=== PATIENT | female | born 1955 ===

== ENCOUNTER 2017-05-10 05:57 | Day surgery (SDC) | payer OTHER ==
[2017-05-04 12:17] VITALS: BMI 48.4
[2017-05-10] MEDS ORDERED: Lactated Ringer's 1,000 ML IV ONE ×2 (07:45→08:45)
[2017-05-10] MEDS ORDERED: Lactated Ringer's 1,000 ML IV SCH (09:17)
[2017-05-10] MEDS ORDERED: Oxycodone/Acetaminophen 5/325 mg Tab PO PRN (09:29)
[2017-05-10] MEDS: HYDROmorphone 0.5 mg/0.5 ml ISec IVP PRN ×2 (09:30→09:45)
--- NOTE | 2017-05-10 10:49 | PCM.SURG1 ---
Surgeon's Initial Post Op Note - Surgeon's Notes Surgeon: Azucena Soto Oak Tanner: Azucena Hickman Type of Anesthesia: General Endo Anesthesia Administered By: Lan Pre-Operative Diagnosis: cholelithiasis Operative Findings: gallbladder with stone Post-Operative Diagnosis: cholelithiasis Operation Performed: laparoscopic cholecystectomy Specimen/Specimens Removed: gallbladder Estimated Blood Loss: EBL {In ML}: 20 Blood Products Given: N/A Drains Used: No Drains Post-Op Condition: Good Date of Surgery/Procedure: 05/10/17 Time of Surgery/Procedure: 10:49
[2017-05-10 11:43] VITALS: RESP 18; TEMP 97.9
[2017-05-10 13:14] VITALS: BP 113/50; PULSE 78; O2SAT 94
--- NOTE | 2017-05-10 15:15 | OP ---
PROCEDURE DATE: 05/10/2017 SURGEON: Dr. Soto EEG TECHNICIAN: Dr. Hickman ANESTHESIA: General, Dr. Montenegro. PREOPERATIVE DIAGNOSIS: Cholelithiasis. POSTOPERATIVE DIAGNOSIS: Cholelithiasis. PROCEDURE: Laparoscopic cholecystectomy. DESCRIPTION OF OPERATION: With the patient in the supine position under adequate general anesthesia, the abdomen was prepped and draped in the usual sterile manner. Veress needle puncture was performe d at the umbilicus with insufflation to 15 cm water pressure of CO2 and a 10 mm laparoscopic trocar w as inserted via an infraumbilical incision. Under direct vision, additional trocars were inserted in the epigastrium and right costal margin. The gallbladder was visualized. The fundus was grasped an d elevated. Omental adhesions were cleared from the surface of the gallbladder to expose the infundi bular area, which was grasped and retracted laterally. The cystic duct was identified and dissected. The cystic duct was cleared down toward the junction with the common bile duct and viewed anteriorl y and posteriorly for a view of safety. The cystic duct was then triply clipped and divided. The cy stic artery was similarly identified and triply clipped and divided and the gallbladder was dissected free of the liver bed using electrocautery. The liver bed was inspected for hemostasis and the diss ection was completed. The gallbladder was placed in a specimen retrieval bag and removed via the umb ilical port site. Right upper quadrant was irrigated and suctioned. Pneumoperitoneum was released a nd the trocars removed. The umbilical port site was closed with a fascial suture of 0 Vicryl. All i ncisions were closed with 4-0 Monocryl subcuticular sutures and Steri-Strips. Dry sterile dressings were applied. The patient tolerated the procedure well and transferred to recovery room in stable co ndition. Estimated blood loss for the procedure was 20 mL. Cristhian Soto MD cc: 58 TT: 05/10/2017 15:14:06 en
== END 2017-05-10 15:30 | disposition home or self-care (01) ==
LOC: H.OPSURG 05:57
PROVIDERS: ATTEND Specialist
DX: K80.20 Calculus of gallbladder without cholecystitis without obstruction (principal); J45.909 Unspecified asthma, uncomplicated; I10 Essential (primary) hypertension; E66.01 Morbid (severe) obesity due to excess calories

== ENCOUNTER 2017-07-06 09:32 | Day surgery (SDC) | payer OTHER ==
[2017-07-06 10:01] VITALS: BMI 42.8
--- NOTE | 2017-07-06 11:11 | CP.PCM.PN ---
Subjective - Date & Time of Evaluation Date of Evaluation: 07/06/17 Time of Evaluation: 11:00 - Subjective Subjective: 62 year old female with PMH of HTN, high cholesterol, asthma seen in [facility] for preoperative evaluation for right ankle arthroscopy with debridement of synovium. She states that she has had this procedure in the past that has helped tremendously but the pain eventually came back. She reports twisting her ankle a lot in the past. She has had this ankle pain for 8+ years. Rates the pain 10/10 and describe the pain as being located at the anterior ankle. Pain with any movements weightbearing or nonweightbearing. She has exhausted all conservative treatment and opt for right ankle surgery. She has no eaten or drank anything since 6pm yesterday. PMH: HTN, high cholesterol, asthma PSH: b/l hammertoe surgery, b/l ankle surgery, L bunion surgery, b/l total knee replacement, cyst removal, hysterectomy, tube ligation Allergies: NKDA SH: smokes 3 cigarettes/week since 15 y.o, socially drinks, denies elicited drug use FH: asthma Meds: see med list Objective - Vital Signs/Intake and Output Vital Signs (last 24 hours): Temp Pulse Resp BP Pulse Ox 98.1 F 73 18 138/76 97 07/06/17 09:55 07/06/17 09:55 07/06/17 09:55 07/06/17 09:55 07/06/17 09:55 - Constitutional Appears: Well, Non-toxic, No Acute Distress - Extremities Exam Additional comments: Vasc: DP and PT 2/4 bilaterally, temperature gradient WNL, RN GERIATRIC <3 seconds, digital hair present bilaterally, no edema noted ORtho: MM is 5/5 bilaterally, severe pain with palpation to the lateral gutter of right ankle, pain with R ankle ROM, moderate pain with palpation of the entire anterior ankle Neuro: gross and protective sensation intact bilaterally Derm: skin is hyrdated, nails x10 wnl, no open lesions noted, webspaces 1-4 b/l are CDI - Neurological Exam Neurological Exam: Alert, Awake, Oriented x3 - Psychiatric Exam Psychiatric exam: Normal Affect, Normal Mood Assessment and Plan - Assessment and Plan (Free Text) Assessment: 62 year old female with PMH of HTN, high cholesterol, asthma seen in [facility] for preoperative evaluation for right ankle arthroscopy with debridement of synovium. Plan: Pt was seen and examined in SDS Pt NPO status was confirmed All Pre-op testing and clearance was in the chart Pt has exhausted all conservative treatment at this time and is opting for surgical intervention Pt was explained procedure and post-operative course All pt's questions were answered to satisfaction No guarantees were made Pt understands all risks, benefits and complications of procedure Pt will follow-up with Dr. Gomez
--- NOTE | 2017-07-06 11:17 | CP.SDSHP ---
Same Day Surgery H & P - History Proposed Procedure: R arthroscopy ankle with debridement Pre-Op Diagnosis: Right Ankle Synovitis - Previous Medical/Surgical History Cardiac: Hypertension Pulmonary: Asthma - Allergies Allergies: Allergies No Known Allergies Allergy (Verified 09/16/16 09:49) - Physical Exam Vital Signs: Vital Signs 07/06/17 07/06/17 09:50 09:55 Temperature 98.1 F Pulse Rate 73 73 Respiratory 18 Rate Blood Pressure 138/76 O2 Sat by Pulse 97 Oximetry - {Optional Preform as Required} Integument: WNL - Impression Impression: Pt was seen and examined in SDS. Pt NPO status was confirmed. All Pre-op testing and clearance was in the chart. Pt has exhausted all conservative treatment at this time and is opting for surgical intervention. Pt was explained procedure and post-operative course. All pt's questions were answered to satisfaction. No guarantees were made. Pt understands all risks, benefits and complications of procedure. Pt will follow-up with Short Stay Discharge - Short Stay Discharge Admitting Diagnosis/Reason for Visit: M19.0/M25.571 Referrals: Slim Marti MD [Primary Care Provider] - Instructions: RICE Therapy (GEN), Oxycodone/Acetaminophen (By mouth), Cephalexin (By mouth) Additional Instructions (Diet, Activity): --Patient in good/stable condition for discharge home. Pt to resume medications per medical reconciliation. Resume regular diet. Please keep dressing clean, dry, & intact to surgical site, use plastic bag over bandage for showering, wear post op shoe at all times when ambulating, call clinic if you see signs of infection (redness, swelling, malodor), please make an appointment to see Dr. Gomez in office/clinic within 1 week for post-op check. Progress Note/Discharge Note with Instructions: - Patient evaluated bedside in recovery s/p surgical procedure. - After surgical procedure patient in NAD - (+) Void, (+) Appetite - Capillary refill time <3s and NVSI intact. - Patient denies complaints at this time - Post operative instructions and plan of care explained to patient at length. - Pt. acknowledges understanding. - Patient stable for DC per podiatric surgery
[2017-07-06] MEDS ORDERED: Lidocaine 1% Inj (20ml) IJ ONE (11:19)
[2017-07-06] MEDS ORDERED: ceFAZolin 2 GM in Sodium Chloride 0.9% 100 ML IVPB ONE (11:19)
[2017-07-06] MEDS ORDERED: Bupivacaine HCl 0.25% PF (30 ml) Inj IJ ONE (11:19)
[2017-07-06] MEDS ORDERED: Propofol 10 mg/ml Inj (20 ML) ONE (12:11)
[2017-07-06] MEDS ORDERED: Midazolam 2 MG/2 ML VIAL ONE (12:11)
[2017-07-06] MEDS ORDERED: Ropivacaine 0.5% 30ML IV ONE (12:14)
[2017-07-06] MEDS ORDERED: Lidocaine 2% w Epi 1:100,000 Inj IJ ONE (12:15)
[2017-07-06] MEDS ORDERED: Bupivacaine 0.5% Inj(30mL) ONE (12:15)
[2017-07-06] MEDS ORDERED: EPINEPHrine 1 mg/ml (1:1000) Inj ONE (12:16)
[2017-07-06] MEDS ORDERED: Lactated Ringer's 1,000 ML IV ONE (12:20)
--- NOTE | 2017-07-06 14:19 | PCM.SURG1 ---
Surgeon's Initial Post Op Note - Surgeon's Notes Surgeon: Dr. Gomez DPM Nuclear Reactor Engineer: Dr. Gallegos DPM, PGY-3, Dr. Bender DPM, PGY-2, Dr. Jackman DPM PGY- 3 Type of Anesthesia: General LMA Anesthesia Administered By: Dr. Scott Pre-Operative Diagnosis: right ankle synovitis and scarring Operative Findings: see dictation Post-Operative Diagnosis: same Operation Performed: R ankle arthroscopy and synovectomy Specimen/Specimens Removed: none Estimated Blood Loss: EBL {In ML}: 2 Blood Products Given: N/A Drains Used: No Drains Post-Op Condition: Good Date of Surgery/Procedure: 07/06/17 Time of Surgery/Procedure: 12:00
[2017-07-06] MEDS ORDERED: Oxycodone/Acetaminophen 5/325 mg Tab PO PRN ×2 (14:23)
[2017-07-06] MEDS ORDERED: DiphenhydrAMINE 50 mg/ml Inj IVP PRN (14:23)
[2017-07-06] MEDS ORDERED: Lactated Ringer's 1,000 ML IV SCH (14:23)
[2017-07-06] MEDS ORDERED: HYDROmorphone 0.5 mg/0.5 ml ISec IVP PRN (14:23)
[2017-07-06 15:36] VITALS: TEMP 97.8
[2017-07-06 16:48] VITALS: BP 123/59; PULSE 76; RESP 20; O2SAT 99
--- NOTE | 2017-07-06 17:19 | RAD ---
PROCEDURE: Right Ankle Radiographs. HISTORY: s/p right ankle surgery COMPARISON: 06/13/2017 FINDINGS: BONES: There is no acute fracture or bone destruction. Bone mineralization is normal. There is a large plantar spur. There is degenerative osteoarthrosis in the talonavicular joint. There are ossific densities inferior to the lateral malleolus which may represent old trauma. JOINTS: Normal. No osteoarthritis. Ankle mortise maintained. Talar dome intact SOFT TISSUES: There is diffuse subcutaneous edema. OTHER FINDINGS: None. IMPRESSION: Large plantar calcaneal spur and mild degenerative osteoarthrosis in the talonavicular joint.
--- NOTE | 2017-07-11 11:22 | OP ---
PROCEDURE DATE: 07/06/2017 PREOPERATIVE DIAGNOSES: Right ankle synovitis and impingement. POSTOPERATIVE DIAGNOSES: Right ankle synovitis and impingement. PROCEDURE PERFORMED: Right ankle arthroscopy with synovectomy and debridement of fibrous tissue. SURGEON: Gil Gomez DPM ASSISTANTS: 1. Juvenal Gallegos DPM, PGY-3. 2. Ruel Jackman DPM, PGY-3. 3. Christine Bender DPM, PGY-2. TYPE OF ANESTHESIA: General sedation and popliteal block. INDICATIONS: This patient is a 62-year-old female with the aforementioned diagnosis. The patient has been treated by Dr. Gomez in the [facility], where she has exhausted multiple forms of conservative and surgical treatment options. The patient desires surgical intervention again at this time. All alternatives, benefits, complications, and risks of surgical procedure were explained to the patient at length. The patient verbalized understanding and wished to proceed. All questions were addressed and answered. No guarantees were given or implied. Consent was signed and the n.p.o. status was confirmed prior to bringing the patient to the operating room. DESCRIPTION OF PROCEDURE: The patient was brought into the operating room, placed on operative table in the supine position. A pneumatic thigh tourniquet was applied to the patient's right thigh. After induction of general sedation, the foot and ankle were then prepped and draped in the normal sterile manner and the procedure began. PROCEDURE: Right ankle arthroscopy and synovectomy with debridement of all fibrotic tissue. Attention was directed to the anterior aspect of the patient's right ankle, where the right ankle joint was palpated and marked with a skin marker. The medial portal for the ankle arthroscopy was palpated just medial to the tibialis anterior tendon at the level of the ankle joint line. A 20 mL syringe with 3:1 mixture of 1% lidocaine plain and 1% lidocaine with epinephrine was inserted at this location into the ankle joint and the ankle joint was insufflated with approximately 15 mL. Next, a #15-blade was utilized to make an incision at this location. The incision was made through superficial dermis and epidermis down to the subcutaneous tissues. A hemostat was then utilized to dissect through the subcutaneous and deep layers down to the ankle joint capsule. Next, the obturator and trocar for the 4.0 mm ankle arthroscope was inserted into the medial portal to penetrate the ankle joint capsule and inserted into the ankle joint. The trocar was then removed from the obturator and the 4.0 mm camera was inserted into the obturator. At this time, it is noted that the arthroscope was inside the ankle joint and there was an abundant amount of synovitic and fibrotic tissue within the ankle joint obscuring appropriate visualization. The proximal location of the lateral portal for the ankle arthroscope was terminated with the ankle arthroscope already within the ankle joint. A #15-blade was utilized to make an incision at this level in line with the previously marked ankle joint. Incision was deepened to the superficial epidermis and dermis. Next, the hemostat was utilized to dissect down to the subcutaneous tissues to lateral aspect of the ankle joint. Again, the trocar was utilized to penetrate the lateral aspect of the ankle through the lateral portal. The shaver was then inserted into the lateral portal and an attempt was made to visualize it with the arthroscope. Shaver was triangulated with the arthroscope and visualized. The shaver was then utilized to resect all visible synovitic and fibrotic tissue. There was again noted that there was an abundant amount of fibrotic and synovitic tissue within the ankle joint impinging proper ankle joint motion. A sterile debridement of the ankle joint and the medial and lateral gutters were then performed. It was again noted that there was an excessive amount of fibrotic tissue within the medial and lateral gutters impinging proper ankle joint range of motion. All of the above fibrotic and synovitic tissue was debrided utilizing the shaver. Attention was directed then to the anterior aspect of the tibia, where it is noted that there was multiple prominent soft tissue fibrotic areas. Shaver was then again utilized to debride all prominent fibrotic soft tissues from the anterior aspect of the tibia. Attention was then directed back to the medial gutter, where the shaver was removed from lateral portal and a grabber was inserted into the lateral portal to further debride any synovitic and fibrotic tissue. The same was done with the grabber for the lateral gutter. The grabber was then removed through the lateral portal and the shaver was again inserted into the lateral portal into the ankle joint and triangulated with arthroscope. All remaining portions of synovitic and fibrotic tissues were removed with the shaver and it was noted at this time that the ankle joint was clearly visualized with increased range of motion and improved removal of synovitic and fibrotic tissue. It was also noted that there were multiple fibrotic changes within the cartilage of the talar dome, but no distinct osteochondral lesion. The shaver and arthroscope were then removed from the lateral and medial portals and the skin was reapproximated utilizing 4-0 nylon suture. Intraoperative injections consisted of 10 mL of 0.5% Marcaine plain administered to the medial aspect of the ankle joint to block the saphenous nerve. Postoperative bandages consisted of saline soaked gauze, TFD, Radha, and an Dar bandage. POSTOPERATIVE CONDITION: The patient tolerated the procedure and anesthesia well with no apparent complications or complaints. The patient was escorted from the OR to the recovery room with vital signs stable and neurovascular status intact. The patient will follow up with Dr. Gomez in [facility] on an outpatient basis. Juvenal Gallegos DPM
== END 2017-07-06 17:29 | disposition home or self-care (01) ==
LOC: H.OPSURG 09:32
PROVIDERS: ATTEND Podiatrist
DX: M65.871 Other synovitis and tenosynovitis, right ankle and foot (principal); E78.5 Hyperlipidemia, unspecified; I10 Essential (primary) hypertension; M25.871 Other specified joint disorders, right ankle and foot

== ENCOUNTER 2018-02-01 09:07 | Emergency (ER) | payer OTHER ==
[2018-02-01 09:24] VITALS: BMI 49.4
[2018-02-01 09:26] VITALS: TEMP 98.2
[2018-02-01] MEDS ORDERED: Lidocaine 5% Patch TD STA (10:01)
[2018-02-01] MEDS ORDERED: Lidocaine 5% Patch TD ONE (10:09)
--- NOTE | 2018-02-01 10:46 | ED PDOC ---
HPI: Back Time Seen by Provider: 02/01/18 09:28 Chief Complaint (Nursing): Back Pain Chief Complaint (Provider): Right flank pain History Per: Patient History/Exam Limitations: no limitations Onset/Duration Of Symptoms: Days Current Symptoms Are (Timing): Still Present Quality Of Discomfort: "Pain" Additional History Per: Patient Additional Complaint(s): 62yo female, with history of hypertension, controlled with medication, presents to ED with right flank pain radiating to her right abdomen for the past 4 days. Patient denies any inciting injuries or trauma. States she has been taking Motrin 600mg every 5-6 hours with no relief of pain; patient states her last dose was 1 day ago. She also reports using a muscle relaxer with no relief of symptoms. She states the pain does not radiate to her legs and denies any associated fever, chills, dysuria, hematuria. Patient states she is able to lean to the left but not to the right due to her pain. She has no other medical complaints. PCP: Moris Sosa Past Medical History Reviewed: Historical Data, Nursing Documentation, Vital Signs Vital Signs: Last Vital Signs Temp 98.2 F 02/01/18 09:24 Pulse 58 L 02/01/18 09:24 Resp 20 02/01/18 09:24 BP 104/60 02/01/18 09:24 Pulse Ox 100 02/01/18 09:24 - Medical History PMH: Arthritis, Asthma, HTN, Hypercholesterolemia, Rheumatoid Arthritis Denies: Anemia, Chronic Kidney Disease - Surgical History Surgical History: Cholecystectomy (05/10/17), Endoscopy - Family History Family History: States: Unknown Family Hx - Social History Current smoker - smoking cessation education provided: No Alcohol: None Drugs: Denies - Home Medications Home Medications: Ambulatory Orders Medication Instructions Recorded Enalapril/Hydrochlorothiazide 1 tab PO DAILY 09/16/16 [Enalapril-Hctz 10-25 mg Tablet] Simvastatin [Zocor] 40 mg PO DAILY 09/16/16 Albuterol HFA [Ventolin HFA 90 1 puff IH Q4 PRN #1 inhaler 11/12/16 mcg/actuation (8 g)] Aspirin [Ecotrin] 81 mg PO DAILY 07/06/17 Cephalexin [Keflex] 1 cap PO TID 07/06/17 Ibuprofen [Motrin Tab] 800 mg PO PRN PRN 07/06/17 oxyCODONE/Acetaminophen [Percocet 5 - 325 mg PO .Q4-6 PRN 07/06/17 5/325 mg Tab] Lidocaine 5% [Lidoderm] 1 patch TD DAILY #10 patch 02/01/18 Naproxen [Naprosyn] 500 mg PO BID PRN #20 tablet 02/01/18 diaZEpam [Valium] 5 mg PO QID #12 tab 02/01/18 - Allergies Allergies/Adverse Reactions: Allergies Allergy/AdvReac Type Severity Reaction Status Date / Time No Known Allergies Allergy Verified 02/01/18 09:32 Review of Systems ROS Statement: Except As Marked, All Systems Reviewed And Found Negative Constitutional: Negative for: Fever, Chills Gastrointestinal: Positive for: Abdominal Pain (right sided) Genitourinary Female: Negative for: Dysuria, Hematuria Musculoskeletal: Positive for: Back Pain (right flank pain) Physical Exam - Reviewed Nursing Documentation Reviewed: Yes Vital Signs Reviewed: Yes - Physical Exam Appears: Positive for: Non-toxic, No Acute Distress Head Exam: Positive for: ATRAUMATIC, NORMAL INSPECTION, NORMOCEPHALIC Skin: Positive for: Normal Color Eye Exam: Positive for: Normal appearance Neck: Positive for: Supple Cardiovascular/Chest: Positive for: Regular Rate, Rhythm Respiratory: Positive for: Normal Breath Sounds Back: Positive for: Other (tenderness to palpation of right paralumbar area. Negative straight leg raise.) Extremity: Positive for: Normal ROM, Other (5/5 motor strength distally) Neurologic/Psych: Positive for: Alert, Oriented. Negative for: Motor/Sensory Deficits - ECG O2 Sat by Pulse Oximetry: 100 (RA) Pulse Ox Interpretation: Normal - Progress Re-evaluation Time: 11:33 Condition: Improved Medical Decision Making Medical Decision Making: Impression: Likely muscle spasm Plan: -- Valium 5mg PO -- Toradol 60 mg IM -- Lidoderm patch Scribe Attestation: Documented by Ruchi Thomas acting as a scribe for Marge Mcnamara MD. Provider Attestation: All medical record entries made by the Scribe were at my direction and personally dictated by me. I have reviewed the chart and agree that the record accurately reflects my personal performance of the history, physical exam, medical decision making, and the department course for this patient. I have also personally directed, reviewed, and agree with the discharge instructions and disposition. Disposition - Clinical Impression Clinical Impression: Back strain - Patient ED Disposition Is Patient to be Admitted: No Doctor Will See Patient In The: Office Counseled Patient/Family Regarding: Diagnosis, Need For Followup, Rx Given - Disposition Disposition: Routine/Home Disposition Time: 11:33 Condition: IMPROVED Prescriptions: diaZEpam [Valium] 5 mg PO QID #12 tab Lidocaine 5% [Lidoderm] 1 patch TD DAILY #10 patch Naproxen [Naprosyn] 500 mg PO BID PRN #20 tablet PRN Reason: Pain, Moderate (4-7) Instructions: Muscle Strain Forms: [facility] (Hebrew) - POA Present On Arrival: None
[2018-02-01 11:49] VITALS: BP 126/60; PULSE 66; RESP 18; O2SAT 99
== END 2018-02-01 11:55 | disposition home or self-care (01) ==
LOC: H.ER 09:07
DX: R10.9 Unspecified abdominal pain (principal); S39.012A Strain of muscle, fascia and tendon of lower back, initial encounter; Y92.89 Other specified places as the place of occurrence of the external cause; E78.00 Pure hypercholesterolemia, unspecified; I10 Essential (primary) hypertension; J45.909 Unspecified asthma, uncomplicated; M06.9 Rheumatoid arthritis, unspecified; Z79.82 Long term (current) use of aspirin
CPT/HCPCS: 96372; 99283; J1885

== ENCOUNTER 2018-05-10 09:10 | Day surgery (SDC) | payer OTHER ==
--- NOTE | 2018-05-10 10:41 | CP.PCM.PN ---
Subjective - Date & Time of Evaluation Date of Evaluation: 05/10/18 Time of Evaluation: 10:38 - Subjective Subjective: Preoperative progress note for Dr. Gomez 63F with PMH HTN, HLD seen preoperatively in [facility] for revisional right second metatarsal surgery as well as partial resection of right fifth metatarsal head. Patient is AAO x 3 and NAD at time of visit. States that she has been having increased pain to her right lateral ankle and foot over the last nine days. States that she stopped taking Aspirin 8 days ago. Denies any other anti- coagulation therapy. States that she has been NPO since 7 pm last night. Also denies any adverse reactions to anesthesia during previous surgeries. Denies any other pedal complaints at this time. Denies any recent N/V/F/C/CP/SOB/D Objective - Vital Signs/Intake and Output Vital Signs (last 24 hours): Temp Pulse Resp BP Pulse Ox 97 F L 70 20 137/68 96 05/10/18 09:30 05/10/18 09:30 05/10/18 09:30 05/10/18 09:30 05/10/18 09:30 - Constitutional Appears: Well, Non-toxic, No Acute Distress - Head Exam Head Exam: ATRAUMATIC, NORMOCEPHALIC - Extremities Exam Additional comments: RLE focused exam Vasc: DP/PT pulses 2/4 b/l. SKin temperature warm to warm from proximal to distal WNL. CFT < 3 seconds to all digits b/l. Minimal LE edema noted around lateral ankle and dorsal foot Neuro: Epicritic and protective sensation grossly intact b/l Derm: Well healed cicatrix noted to dorsal foot at level of second MTPJ. Otherwise no open lesions, wounds, maceration, xerosis, abnormal pigmentation or abnormal growths noted MSK: Diffuse minimal POP noted to right foot and lateral ankle. Increased POP noted to second MTPJ and lateral fifth metarsal head. Floating left second digit noted. No other gross deformities noted. Slight calf pain when squeezed on right side - Neurological Exam Neurological Exam: Alert, Awake, Oriented x3 - Psychiatric Exam Psychiatric exam: Normal Affect, Normal Mood Assessment and Plan - Assessment and Plan (Free Text) Assessment: 63F with PMH HTN, HLD seen preoperatively in [facility] for revisional right second metatarsal surgery as well as partial resection of right fifth metatarsal head Plan: Pt was seen and examined in SDS Pt NPO status was confirmed All pre-op testing and clearance in chart Pt has exhausted all conservative treatment at this time and is opting for surgical intervention Pt was explained procedure and post-operative course All pt's questions were answered to satisfaction No guarantees were made Pt understands all risks, benefits and complications of procedure Pt will follow-up with Dr. Gomez within 1 week of surgery
--- NOTE | 2018-05-10 10:48 | CP.SDSHP ---
Same Day Surgery H & P - History Proposed Procedure: Revisional right second metatarsal head osteotomy and right fifth metatarsal head partial resection Pre-Op Diagnosis: Painful floating right second digit and painful right fifth metatarsal head exostosis - Previous Medical/Surgical History Pain: 6.Severe Pain Previous Surgical History: Right second metatarsal head osteotomy - Allergies Allergies: Allergies No Known Allergies Allergy (Verified 05/10/18 09:37) - Physical Exam Vital Signs: Vital Signs 05/10/18 09:30 Temperature 97 F L Pulse Rate 70 Respiratory 20 Rate Blood Pressure 137/68 O2 Sat by Pulse 96 Oximetry Mental Status: Alert & Oriented x3 - {Optional Preform as Required} Integument: WNL Ortho: Other (POP right second met head and fifth met head) - Impression Pt. Evaluated Today:Candidate for Anesthesia & Procedure: Yes - Date & Time Date: 05/10/18 Time: 10:48 Short Stay Discharge - Short Stay Discharge Admitting Diagnosis/Reason for Visit: S93.149D,M77.41 Disposition: HOME/ ROUTINE Referrals: Adriana Perez MD [Primary Care Provider] -
[2018-05-10] MEDS ORDERED: Bupivacaine 0.5% Inj(30mL) IJ ONE (10:49)
[2018-05-10] MEDS ORDERED: Lidocaine 1% Inj (20ml) IJ ONE (10:49)
[2018-05-10] MEDS ORDERED: ceFAZolin 1 GM in Sodium Chloride 0.9% 100 ML IVPB ONE (10:49)
[2018-05-10] MEDS ORDERED: Sodium Chloride 0.9% 1,000 ML IV SCH (11:00)
[2018-05-10] MEDS ORDERED: Lactated Ringer's 1,000 ML IV ONE (12:00)
[2018-05-10] MEDS ORDERED: Midazolam 2 MG/2 ML VIAL ONE (12:02)
[2018-05-10] MEDS ORDERED: Propofol 10 mg/ml Inj (20 ML) ONE (12:02)
[2018-05-10] MEDS ORDERED: Bupivacaine HCl 0.5% PF (10 ml) Inj ONE (12:21)
[2018-05-10] MEDS ORDERED: Dexamethasone 4 mg/1 ml ONE (12:25)
[2018-05-10] MEDS ORDERED: MethylPREDNISolone Depo 40 mg/ml Inj ONE (12:25)
[2018-05-10] MEDS ORDERED: Lidocaine 2% Inj (20ml) ONE (12:25)
[2018-05-10] MEDS ORDERED: Bupivacaine HCl 0.25% PF (30 ml) Inj ONE (12:25)
[2018-05-10] MEDS ORDERED: Lidocaine 4% MPF 5 ML IJ ONE (12:54)
[2018-05-10] MEDS ORDERED: Sevoflurane - Inhalation Anesthetic Liq (250 ml) ONE (13:17)
[2018-05-10] MEDS: Lidocaine 2% Inj (20ml) ONE ×2 (13:21→14:45)
--- NOTE | 2018-05-10 15:02 | PCM.SURG1 ---
Surgeon's Initial Post Op Note - Surgeon's Notes Surgeon: Dr. Gomez DPM Shower Room Attendant: Dr. Jimenez PGY-2 DPM, Dr. Jackman PGY-1 Anesthesia Administered By: Dr. Sosa Pre-Operative Diagnosis: 1. right foot 2nd digit subluxation. 2. right foot 2nd MPJ plantar plate rupture. 3. right foot 5th metatarsalgia secondary to bony prominence and soft tissue Operative Findings: see dictations; materials: 3-0 vicryl, 3-0 monocryl, 4-0 monocryl, fiberwire. injectables: preoperative injectables total: 16 cc of 1:1 of 1% lidocaine plain and .25% marcaine plain, intraoperative injectables: 10cc of 1% lidocaine pain Post-Operative Diagnosis: same Operation Performed: 1. 2nd metatarsal phalangeal joint plantar plate repair with fiberwire right foot. 2. 5th metatarsal partial head resection and soft tissue right foot Specimen/Specimens Removed: 1. soft tissue from lateral aspect of 5th metatarsad head Estimated Blood Loss: EBL {In ML}: 2 Blood Products Given: N/A Drains Used: No Drains Post-Op Condition: Good Date of Surgery/Procedure: 05/10/18 Time of Surgery/Procedure: 12:45
[2018-05-10] MEDS ORDERED: HYDROmorphone 0.5 mg/0.5 ml ISec IVP PRN (15:06)
[2018-05-10] MEDS ORDERED: Lactated Ringer's 1,000 ML IV SCH (15:15)
[2018-05-10] MEDS ORDERED: Oxycodone/Acetaminophen 5/325 mg Tab PO PRN ×2 (15:16)
[2018-05-10 16:24] VITALS: RESP 18
[2018-05-10 17:20] VITALS: PULSE 68
[2018-05-10 18:29] VITALS: BP 121/57; TEMP 98; O2SAT 95
--- NOTE | 2018-05-11 16:38 | RAD ---
PROCEDURE: Right Foot Radiographs. HISTORY: s/p right foot surgery COMPARISON: 04/10/2018 FINDINGS: BONES: No acute fracture. Healed fracture deformity distal 5th metatarsal -secondary 5th metatarsal phalangeal joint arthrosis here. Residual hardware tracts 2nd metatarsal and 2nd proximal phalanx prior hardware here removed at 2nd metatarsal head. Osseous hypertrophic changes with or without concomitant small accessory ossifications centers cuboid 5th metatarsal articulation -unchanged. Inferior plantar spur JOINTS: Minimal 1st metatarsal joint space narrowing -osteoarthrosis SOFT TISSUES: Soft tissue swelling OTHER FINDINGS: None. IMPRESSION: Interval soft tissue swelling. No acute type periosteal reaction Interval removal of hardware 2nd digit Other findings -as above.
--- NOTE | 2018-05-15 08:15 | OP ---
PROCEDURE DATE: 05/10/2018 PATIENT'S AGE: 63. PATIENT'S GENDER: Female. PREOPERATIVE DIAGNOSES: 1. Right second metatarsophalangeal joint subluxation, secondary to recurrent plantar plate rupture. 2. Right foot fifth metatarsal head metatarsalgia. POSTOPERATIVE DIAGNOSES: 1. Right foot second metatarsophalangeal joint plantar plate rupture with second-degree subluxation. 2. Right foot fifth metatarsal extracapsular soft tissue mass. 3. Right foot fifth metatarsal head metatarsalgia. PROCEDURES PERFORMED: 1. Right foot revisional second metatarsophalangeal joint plantar plate repair. 2. Right foot excision of soft tissue mass. 3. Right foot fifth metatarsal head exostectomy. PRIMARY SURGEON: Gil Gomez DPM ASSISTANTS: Mary Jimenez, PGY-2, DPM and Dr. Letitia Jackman, PGY-1 ANESTHESIOLOGIST: Monico Sosa MD ANESTHESIA TYPE: IV sedation with local. SPECIMEN: Right foot soft tissue mass. INDICATIONS: The patient is a 63-year-old female with the above-stated diagnoses. The patient has exhausted all conservative treatment options at this point and is now in need of additional surgical intervention. The patient signed the surgical consent after careful explanation of risks, benefits, complications, and potential alternatives of the above surgical procedures. No guarantees were either given or implied. All the patient's questions were answered to her satisfaction. PREPARATION: The patient's n.p.o. status was confirmed prior to bringing the patient to the operating room. The patient was brought into the operating room and placed on the operating room table in a supine position. A well-padded pneumatic tourniquet was applied in a supramalleolar position to the patient's right ankle and set at 250 mmHg to be inflated once the procedure began. Once IV sedation was confirmed to have been achieved, the patient received an ipsilateral hip pump placed inferior to the operating room table mattress to allow the patient in adequate position. At this time, the patient received a total of 20 mL of 1:1 mixture of 0.5% Marcaine plain to 1% lidocaine plain in a local block type fashion in the forefoot. Once local anesthetic was confirmed to have been achieved, the patient's right foot was then prepped and draped in the usual sterile manner. The tourniquet was inflated after the foot had been exsanguinated, and the procedure began. PROCEDURE 1: Right foot revision of plantar plate repair. Attention was then directed to the dorsal aspect of the patient's second metatarsophalangeal joint where a linear longitudinal incision was made just medial to the joint through previous surgical . The incision was then deepened through subcutaneous tissues with care being taken to identify, avoid and retract all vital neurovascular structures. All bleeders were cauterized and ligated as needed. Subcutaneous hypertrophic scar tissue formation was noted at this level. Sharp dissection was performed to excise hypertrophic scar tissue in the subcutaneous tissue layer with care being taken to preserve all tendinous and neurovascular structures. This released approximately 20% of extensive contracture at the level of the metatarsophalangeal joint. At this time upon visualization of periosteum and capsule, a sharp periosteal and capsular incision was made in the midline aspect using a #15 blade through the periosteal and capsular structures overlying to the metatarsophalangeal joint, overlying to the incision. Periosteal capsular structures were then reflected medially and laterally, thus exposing the head of the metatarsal and base of the proximal phalanx into the operative view. At this time, previous fixation hardware was noted to be in the head of the second metatarsal from previous osteotomy with fixation. At this time, intraoperative decision was made to remove surgical hardware to allow for temporary fixation of joint structure and visualization of plantar plate. At this time, a pair of Synthes 2.0 screws were removed and passed from the operative field. Upon removal, stability of second metatarsal head was assessed and found to be adequate. At this time, capsular tissues at the level of the joint were excised and passed from the operative field. This resolved extension contracture of the second digit. Lateral subluxation remained. At this time using manual distraction, toes distracted and allowed mild level of visualization of plantar plate that was noted that there was partial tearing of the plantar plate just inferior to the head of the second metatarsal. At this time, small joint distractor was introduced and using K-wire fixation at hinge points, second metatarsophalangeal joint was distracted to allow greater visualization of the second metatarsophalangeal joint plantar plate. At this time, partial joint was visualized. Using #15-blade, distal attachment at the base of the second metatarsophalangeal plate was resected free with care being taken to avoid and preserve underlying flexor tendons with displaced plantar plate. Complete flexor tendons were visualized and found to be uninjured. Free flap of plantar plate was found to be adequate and could be advanced and was advanceable with manual handling. At this time, surgical site was then flushed with copious amounts of sterile saline. Next, the Arthrex Viper system was introduced, and Micro SutureLasso was then placed into the medial and the lateral aspects of the plantar plate. At this time using a 0.45-inch K-wire, parallel bone were made into the base of the proximal phalanx. At this time, fiber tapes were advanced to the respective laterality trephine holes and with the second digit placed in rectus 20-degree plantar flexed position. SutureLassos were then looped and secured. At this time upon release of manual manipulation, it was found that the second digit remained in a rectus position with no subluxation appreciated. Surgical site was then flushed with copious amounts of sterile saline. Capsular structures were reapproximated using 3-0 Vicryls. Subcutaneous tissue layers were reapproximated using 4-0 Vicryl. Running subcuticular stitch with 4-0 Monocryl was utilized to reapproximate the skin layer. PROCEDURE 2: Right foot excision of soft tissue mass: At this time, attention was then directed to the lateral aspect of the fifth metatarsophalangeal joint. At this time, approximately 4-cm linear longitudinal incision was made using #15 blade, lateral and parallel to the tendon of the extensor digitorum longus. Upon completion of this incision, it was noted that the patient was still partially . At this time, the patient received 6 mL of 1% lidocaine plain in a local block type fashion. Upon confirmation of anesthetic taken effect, the procedure continued. This incision was extended down to the subcutaneous tissue as well as care being taken to identify and retract all other neurovascular structures. Upon blunt dissection of subcutaneous tissue, a noted glistening soft tissue mass well lobulated was encountered. This soft tissue mass was noted to be extracapsular to the fifth metatarsophalangeal joint along its lateral and inferior margins. Upon encounter, it was extended down to the stalk, was directed inferior to the metatarsophalangeal joint #2. Upon excision, it was noted that the mass was approximately 5 cm x 2 cm in width. The soft tissue mass was passed off the surgical field to be sent to Pathology for evaluation. PROCEDURE 3: Right foot fifth metatarsal head exostectomy. Considered the procedure through the previously made skin incision, an approximately 2-cm long linear longitudinal capsular periosteal incision was made overlying the fifth metatarsal head which was freed of its capsular attachments, thus allowing full visualization of fifth metatarsal head which was noted to be dystrophic with hypertrophic exostoses noted to be lateral and inferior lateral prominences. At this time, a sagittal saw was introduced, and bony prominences laterally and inferiorly were resected and passed from the operative field. Surgical site was then flushed with copious amounts of sterile saline. Capsular structures were then reapproximated using 3-0 Vicryls, skin was reapproximated using 4-0 Monocryl. Skin was reapproximated using 4-0 Monocryl in a running subcuticular type fashion. The patient received additional 10 mL of 1% lidocaine plain in a local block type fashion around the surgical sites. Surgical sites were then dressed with wet-to-dry 4 x 4 gauze, Kerlix, Radha, Coban. POSTOPERATIVE CONDITION: The patient tolerated the anesthesia and procedure well, was escorted to the recovery room with vital signs stable and neurovascular status intact to the right foot. The patient had no complaints or complications. The patient will follow up with Dr. Gomez on an outpatient basis. Franchesca Jimenez DPM Philyl Gomez DPM
== END 2018-05-10 19:10 | disposition home or self-care (01) ==
LOC: H.OPSURG 09:10
PROVIDERS: ATTEND Podiatrist
DX: M77.41 Metatarsalgia, right foot (principal); S93.149D Subluxation of metatarsophalangeal joint of unspecified toe(s), subsequent encounter; R22.41 Localized swelling, mass and lump, right lower limb; E78.5 Hyperlipidemia, unspecified; I10 Essential (primary) hypertension
CPT/HCPCS: 28039; 28288; 28899; 73630; 88305; 97162; C1713; G8978; G8979; G8980; J0690; J1170; J2250; J2704; J3010; J7030; J7120

== ENCOUNTER 2018-05-23 09:03 | Emergency (ER) | payer OTHER ==
[2018-05-23 09:08] VITALS: BMI 47.7
[2018-05-23 09:14] VITALS: BP 120/69; PULSE 70; RESP 20; TEMP 97.8; O2SAT 98
--- NOTE | 2018-05-23 10:16 | ED PDOC ---
HPI: Wound Care - HPI Time Seen by Provider: 05/23/18 09:48 Chief Complaint (Nursing): Wound Check Chief Complaint (Provider): Wound Check History Per: Patient Exam Limitations: no limitations Onset/Duration Of Symptoms: Days Current Symptoms Are (Timing): Better Additional Complaint(s): 63 year old female presents to the ED for a dressing change/ wound check. Patient had a right hammer toe surgery by Dr. Gomez. She has no complaints. PMD: Adriana Perez Past Medical History Reviewed: Historical Data, Nursing Documentation, Vital Signs Vital Signs: Last Vital Signs Temp 97.8 F 05/23/18 09:08 Pulse 70 05/23/18 09:08 Resp 20 05/23/18 09:08 BP 120/69 05/23/18 09:08 Pulse Ox 98 05/23/18 09:08 - Medical History PMH: Arthritis, Asthma, HTN, Hypercholesterolemia, Rheumatoid Arthritis Denies: Anemia, Chronic Kidney Disease - Surgical History Surgical History: Cholecystectomy (05/10/17), Endoscopy - Family History Family History: States: Unknown Family Hx - Home Medications Home Medications: Ambulatory Orders Medication Instructions Recorded Enalapril/Hydrochlorothiazide 1 tab PO DAILY 09/16/16 [Enalapril-Hctz 10-25 mg Tablet] Simvastatin [Zocor] 40 mg PO DAILY 09/16/16 Albuterol HFA [Ventolin HFA 90 1 puff IH Q4 PRN #1 inhaler 11/12/16 mcg/actuation (8 g)] Aspirin [Ecotrin] 81 mg PO DAILY 07/06/17 Cephalexin [cephalexin] 500 mg PO TID 05/10/18 oxyCODONE/Acetaminophen [Percocet 1 tab PO Q4 PRN 05/10/18 5/325 mg Tab] - Allergies Allergies/Adverse Reactions: Allergies Allergy/AdvReac Type Severity Reaction Status Date / Time No Known Allergies Allergy Verified 05/10/18 09:37 Review of Systems ROS Statement: Except As Marked, All Systems Reviewed And Found Negative Physical Exam - Reviewed Nursing Documentation Reviewed: Yes Vital Signs Reviewed: Yes - Physical Exam Appears: Positive for: No Acute Distress Head Exam: Positive for: ATRAUMATIC, NORMAL INSPECTION, NORMOCEPHALIC Skin: Positive for: Normal Color, Warm, Dry Extremity: Positive for: Other (right foot dressing differed to podiatry) Neurologic/Psych: Positive for: Alert, Oriented (x3). Negative for: Motor/ Sensory Deficits - ECG O2 Sat by Pulse Oximetry: 98 (RA) Pulse Ox Interpretation: Normal Medical Decision Making Medical Decision Making: Time: 947 Initial Impression: wound check Initial Plan: --Podiatry consult Pt evaluated in ED by Podiatry, wound evaluated, dressing placed. Scribe Attestation: Documented by Yeimi Hanley, acting as a scribe for Lucina Perera MD Provider Scribe Attestation: All medical record entries made by the Scribe were at my direction and personally dictated by me. I have reviewed the chart and agree that the record accurately reflects my personal performance of the history, physical exam, medical decision making, and the department course for this patient. I have also personally directed, reviewed, and agree with the discharge instructions and disposition. Disposition - Clinical Impression Clinical Impression: Encounter for postoperative wound check - Disposition Referrals: Gil Gomez MD [Staff Provider] - Disposition: Routine/Home Disposition Time: 10:52 Condition: STABLE Instructions: Surgical Wound (DC) Forms: [employer] (Kinyarwanda)
--- NOTE | 2018-05-23 12:06 | CP.PCM.CON ---
History of Present Illness - History of Present Illness History of Present Illness: Podiatry consult note for Dr. Gomez, 63 y/o female patient presented to ED for a dressing change. Patient's surgery was on 05/10/18. Patient states she is going away this weekend and would like to have her dressing changed as clinic will be closed on Tuesday05/24/18. Patient had a dressing on, with a Camboot. Patient's dressing was clean, dry and intact. Patient denied any pain to the area. Patient states she will follow up in clinic on 05/31/18. Patient denies any other pedal complaints. Patient states denies F/V/N/SOB/chills/posterior calf pain. Review of Systems - Review of Systems All systems: reviewed and no additional remarkable complaints except Review of Systems: As per HPI - Constitutional Constitutional: As Per HPI Past Patient History - Infectious Disease Hx of Infectious Diseases: None - Past Medical History & Family History Past Medical History?: Yes - Past Social History Smoking Status: Former Smoker - CARDIAC Hx Hypercholesterolemia: Yes Hx Hypertension: Yes - PULMONARY Hx Asthma: Yes - NEUROLOGICAL Hx Neurological Disorder: No - HEENT Hx HEENT Problems: No - RENAL Hx Chronic Kidney Disease: No - ENDOCRINE/METABOLIC Hx Endocrine Disorders: No - HEMATOLOGICAL/ONCOLOGICAL Hx Anemia: No - INTEGUMENTARY Hx Dermatological Problems: No Other/Comment: Chicken pox measles - MUSCULOSKELETAL/RHEUMATOLOGICAL Hx Arthritis: Yes Hx Rheumatoid Arthritis: Yes - GASTROINTESTINAL Hx Gastrointestinal Disorders: No - GENITOURINARY/GYNECOLOGICAL Hx Genitourinary Disorders: No - PSYCHIATRIC Hx Emotional Abuse: No Hx Physical Abuse: No Hx Substance Use: No - SURGICAL HISTORY Hx Cholecystectomy: Yes (05/10/17) - ANESTHESIA Hx Anesthesia: Yes Hx Anesthesia Reactions: Yes (severe nausea/vomitting) Hx Malignant Hyperthermia: No Meds Allergies/Adverse Reactions: Allergies Allergy/AdvReac Type Severity Reaction Status Date / Time No Known Allergies Allergy Verified 05/10/18 09:37 Physical Exam - Constitutional Appears: Well, Non-toxic, No Acute Distress - Head Exam Head Exam: ATRAUMATIC, NORMOCEPHALIC - Extremities Exam Additional comments: Right Lower Extremity VASC: DP and PT 1/4, CFT less than 3 seconds x 5, TG warm to cool proximal to distal, minimal edema noted to the surgical site NEURO: grossly intact DERM: surgical site intact with steri-strips, no malodor, no drainage, no fluctuance, no dehiscence, no clinical signs of infection noted, no erythema, minimal swelling surrounding the surgical site MSK: mild pain on palpation - Neurological Exam Neurological exam: Alert, Oriented x3 - Psychiatric Exam Psychiatric exam: Normal Affect, Normal Mood Results - Vital Signs Recent Vital Signs: Last Vital Signs Temp 97.8 F 05/23/18 09:08 Pulse 70 05/23/18 09:08 Resp 20 05/23/18 09:08 BP 120/69 05/23/18 09:08 Pulse Ox 98 05/23/18 10:20 Assessment & Plan - Assessment and Plan (Free Text) Assessment: 63 y/o female s/p 14 days right hammertoe surgery Plan: Patient seen and evaluated Plan discussed with attending Dr. Gomez Steri-strips left intact Patient surgical site dressed with gauze, kerlix, nicolette and patient advised to continue wearing Camboot Patient demonstrated verbal understanding and all patient questions answered Patient will RTC on 05/31/18 Thank you for the podiatry consult - Date & Time Date: 05/23/18 Time: 12:12
== END 2018-05-23 10:55 | disposition home or self-care (01) ==
LOC: H.ER 09:03
DX: Z48.89 Encounter for other specified surgical aftercare (principal)

== ENCOUNTER 2018-07-16 09:02 | Emergency (ER) | payer OTHER ==
[2018-07-16 09:02] VITALS: BMI 47.7
[2018-07-16 09:11] VITALS: PULSE 71; RESP 16; TEMP 98.3; O2SAT 97
[2018-07-16 11:13] VITALS: BP 148/87
--- NOTE | 2018-07-16 11:40 | ED PDOC ---
HPI: Back Time Seen by Provider: 07/16/18 09:37 Chief Complaint (Nursing): Back Pain Chief Complaint (Provider): Back Pain History Per: Patient History/Exam Limitations: no limitations Onset/Duration Of Symptoms: Days (2) Additional Complaint(s): 63 years old female, who is seen frequently in this ED for acute exacerbation, presents to the ED for evaluation of worsening chronic back pain noticed on Tuesday. 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 She states in the past visits to the ED she received an injection and flucoral, which she is requesting today. Patient denies any weakness, numbness, incontinent, trauma, fall or loss of balance. She emulated on a cane. PMD: Darshan Wilkes Past Medical History Reviewed: Historical Data, Nursing Documentation, Vital Signs Vital Signs: Last Vital Signs Temp 98.3 F 07/16/18 09:06 Pulse 71 07/16/18 09:06 Resp 16 07/16/18 09:06 BP 148/87 07/16/18 11:12 Pulse Ox 97 07/16/18 09:06 - Medical History PMH: Arthritis, Asthma, HTN, Hypercholesterolemia, Rheumatoid Arthritis Denies: Anemia, Chronic Kidney Disease - Surgical History Surgical History: Cholecystectomy (05/10/17), Endoscopy - Family History Family History: States: Unknown Family Hx - Social History Current smoker - smoking cessation education provided: No Alcohol: None Drugs: Denies - Home Medications Home Medications: Ambulatory Orders Medication Instructions Recorded Enalapril/Hydrochlorothiazide 1 tab PO DAILY 09/16/16 [Enalapril-Hctz 10-25 mg Tablet] Simvastatin [Zocor] 40 mg PO DAILY 09/16/16 Albuterol HFA [Ventolin HFA 90 1 puff IH Q4 PRN #1 inhaler 11/12/16 mcg/actuation (8 g)] Aspirin [Ecotrin] 81 mg PO DAILY 07/06/17 Cephalexin [cephalexin] 500 mg PO TID 05/10/18 oxyCODONE/Acetaminophen [Percocet 1 tab PO Q4 PRN 05/10/18 5/325 mg Tab] Cyclobenzaprine [Flexeril] 5 mg PO Q12 PRN #20 tab 07/16/18 - Allergies Allergies/Adverse Reactions: Allergies Allergy/AdvReac Type Severity Reaction Status Date / Time No Known Allergies Allergy Verified 05/10/18 09:37 Review of Systems ROS Statement: Except As Marked, All Systems Reviewed And Found Negative Musculoskeletal: Positive for: Back Pain Neurological: Negative for: Weakness, Numbness, Other (Trauma, fall, loss of balance) Physical Exam - Reviewed Nursing Documentation Reviewed: Yes Vital Signs Reviewed: Yes - Physical Exam Appears: Positive for: Non-toxic, No Acute Distress Head Exam: Positive for: ATRAUMATIC, NORMOCEPHALIC Back: Positive for: Other (Paraspinal tenderness to lumbar spine. Full ROM) Extremity: Positive for: Normal ROM Neurologic/Psych: Positive for: Alert, Oriented - ECG O2 Sat by Pulse Oximetry: 97 (RA) Pulse Ox Interpretation: Normal Medical Decision Making Medical Decision Making: Time: 1003 --63 years old female with acute exacerbation of chronic back pain. --Patient is scheduled to follow up with Dr. Wilkes on July 31 --Discharge if pain improve 4 Patient reports improvement of symptoms and stable for discharge. Patient will follow up with Dr. Wilkes as scheduled. Initial Plan: --Flexeril 10 mg PO --Toradol 30 mg IM Scribe Attestation: Documented by Agnieszka Hough, acting as a scribe for Anya Hogan MD. Provider Scribe Attestation: All medical record entries made by the Scribe were at my direction and personally dictated by me. I have reviewed the chart and agree that the record accurately reflects my personal performance of the history, physical exam, medical decision making, and the department course for this patient. I have also personally directed, reviewed, and agree with the discharge instructions and disposition. Disposition - Clinical Impression Clinical Impression: Chronic back pain - Disposition Referrals: Darshan Wilkes MD [Primary Care Provider] - Disposition: Routine/Home Disposition Time: 10:44 Condition: IMPROVED Additional Instructions: Avoid activities that worsen the pain. Continue to take all medications as prescribed by your primary doctor. Follow up with your doctor as previously scheduled. Return to the emergency department if symptoms worsen or if new symptoms develop. Prescriptions: Cyclobenzaprine [Flexeril] 5 mg PO Q12 PRN #20 tab PRN Reason: Pain, Moderate (4-7) Forms: [employer] (Arabic) Print Language: YAKUT
== END 2018-07-16 11:12 | disposition home or self-care (01) ==
LOC: H.ER 09:02
DX: M54.9 Dorsalgia, unspecified (principal); G89.29 Other chronic pain
CPT/HCPCS: 96372; 99283; J1885

== ENCOUNTER 2018-09-04 08:04 | Day surgery (SDC) | payer OTHER ==
[2018-09-04] MEDS ORDERED: Lactated Ringer's 500 ML IV ONE (08:24)
[2018-09-04 08:33] VITALS: BMI 49.4
[2018-09-04 10:38] VITALS: BP 111/64; PULSE 61; RESP 21; TEMP 96.8; O2SAT 98
== END 2018-09-04 12:47 | disposition home or self-care (01) ==
LOC: H.ENDO 08:04
PROVIDERS: ATTEND Internal Medicine Gastroenterology
DX: Z86.010 Personal history of colon polyps (principal); I10 Essential (primary) hypertension; J45.909 Unspecified asthma, uncomplicated; E66.01 Morbid (severe) obesity due to excess calories; K64.8 Other hemorrhoids; K57.30 Diverticulosis of large intestine without perforation or abscess without bleeding
CPT/HCPCS: 45378; J7120

== ENCOUNTER 2018-09-20 14:24 | Emergency (ER) | payer OTHER ==
[2018-09-20 14:24] VITALS: BMI 49.4
[2018-09-20 14:33] VITALS: TEMP 98; O2SAT 98
[2018-09-20] MEDS ORDERED: Bacitracin 500 Units/gm Oint Foilpak UD TOP STA (14:49)
--- NOTE | 2018-09-20 15:08 | ED PDOC ---
HPI: Trauma/Fall - HPI Time Seen by Provider: 09/20/18 14:35 Chief Complaint (Nursing): Trauma Chief Complaint (Provider): Trauma History Per: Patient History/Exam Limitations: no limitations Onset/Duration Of Symptoms: Hrs Additional Complaint(s): Rula Gregg is a 63 year old female with a past medical history of hypertension and hypercholesterolemia who is presenting to the ED for evaluation of left finger pain, right elbow pain, neck pain, and head pain onset s/p fall. Patient states that she was walking on sidewalk just prior to arrival and tripped over uneven concrete with her cane. She reports that she lost her balance and fell on her right side. She reports that initially the pain was 2/10 but now it has increased to 6/10. Patient states that she took Ibuprofen 800mg at 10am for arthritis. She denies any fever, anticoagulant use, LOC, dizziness, headache, changes in vision, nausea, vomiting, lower extremity pain, abdominal pain, chest pain, or shortness of breath. PMD: Darshan Wilkes Past Medical History Reviewed: Historical Data, Nursing Documentation, Vital Signs Vital Signs: Last Vital Signs Temp 98 F 09/20/18 14:31 Pulse 65 09/20/18 14:31 Resp 16 09/20/18 14:31 BP 155/63 H 09/20/18 14:31 Pulse Ox 98 09/20/18 14:31 - Medical History PMH: Arthritis, Asthma, HTN, Hypercholesterolemia, Rheumatoid Arthritis - Surgical History Surgical History: Cholecystectomy (05/10/17), Endoscopy Other surgeries: bilateral knee replacement, hysterectomy, and multiple foot procedures - Family History Family History: States: Unknown Family Hx - Social History Current smoker - smoking cessation education provided: No Alcohol: None Drugs: Denies - Home Medications Home Medications: Ambulatory Orders Medication Instructions Recorded Enalapril/Hydrochlorothiazide 10 - 25 mg PO DAILY 09/04/18 [Enalapril-Hctz 10-25 mg Tablet] RX: Aspirin [Lo-Dose Aspirin EC] 81 mg PO DAILY 09/04/18 Simvastatin 10 mg PO DAILY 09/04/18 Acetaminophen [Acetaminophen 8 650 mg PO Q8 PRN #21 tablet.er 09/20/18 Hour] Meloxicam [Mobic] 15 mg PO DAILY #10 tab 09/20/18 - Allergies Allergies/Adverse Reactions: Allergies Allergy/AdvReac Type Severity Reaction Status Date / Time No Known Allergies Allergy Verified 09/20/18 14:31 Review of Systems ROS Statement: Except As Marked, All Systems Reviewed And Found Negative Constitutional: Negative for: Fever Eyes: Negative for: Vision Change Cardiovascular: Negative for: Chest Pain Respiratory: Negative for: Shortness of Breath Gastrointestinal: Negative for: Nausea, Vomiting, Abdominal Pain Musculoskeletal: Positive for: Neck Pain, Arm Pain, Hand Pain Neurological: Negative for: Headache, Dizziness Physical Exam - Reviewed Nursing Documentation Reviewed: Yes Vital Signs Reviewed: Yes - Physical Exam Comments: GENERAL APPEARANCE: Patient is awake, alert, oriented x 3, in no acute distress. Resting comfortably. SCALP: (+) right parietal scalp tenderness. (-) hematoma, (-) erythema, (-) skin break. SKIN: Warm, dry; (-) cyanosis. EYES: (-) conjunctival pallor, (-) scleral icterus. (-) periorbital tenderness or swelling. (+) EOMI, (+) PEERL. ENMT: Mucous membranes moist. (-) No facial bone tenderness, full ROM of mandible. NECK: Supple, FROM (+) right paracervical tenderness, (+) midline cervical tenderness. (-) stiffness, (-) lymphadenopathy. CHEST AND RESPIRATORY: (-) rales, (-) rhonchi, (-) wheezes; breath sounds equal bilaterally. Respirations even and nonlabored. HEART AND CARDIOVASCULAR: (-) irregularity ABDOMEN AND GI: Soft (-) distention. (-) tenderness. (-) guarding, (-) rebound, (-) palpable masses, (-) CVA tenderness. EXTREMITIES: (+) diffuse tenderness to right elbow, decreased flexion and supination secondary to pain. (-) erythema, (-) skin break, (-) ecchymosis. (+) both wrists non-tender with full ROM. Left upper extremity unremarkable except for left second digit: (+) 0.5cm superficial abrasion to dorsum of middle phalanx, (+) mild edema to middle and proximal left second digit and decreased flexion secondary to pain. (+) sensation intact, light armored reconnaissance officer strength equal. (+) right trapezius tenderness, full ROM of bilateral shoulders NEURO AND PSYCH: Mental status as above; (-) focal findings. Gait: steady. Speech: clear. (-) facial asymmetry. support manager: grossly intact. Cerebellar tests intact. - ECG O2 Sat by Pulse Oximetry: 98 (RA) Pulse Ox Interpretation: Normal Medical Decision Making Medical Decision Making: Time: 14:45 Impression: acute head, neck, elbow, and finger pain s/p fall Plan: --CT Cervical Spine --CT Head --Bacitracin --Ultram 50 mg PO --X-ray right elbow --X-ray left hand Hand xray: FINDINGS: BONES: No acute fracture. JOINTS: 1st carpometacarpal joint degenerative changes. SOFT TISSUES: Normal. OTHER FINDINGS: None. IMPRESSION: No demonstrated fracture or dislocation. Elbow xray: FINDINGS: BONES: No placed fracture. JOINTS: Degenerative changes. SOFT TISSUES: Normal. JOINT EFFUSION: Suggestion of anterior fat pad elevation OTHER FINDINGS: None. IMPRESSION: Suggestion of anterior fat pad elevation raise the possibility of radio occult fracture. Clinical correlation is recommended. In light of xray findings, CT upper extremity ordered. Cervical spine CT: FINDINGS: VERTEBRAE: No fracture. Reversal of the normal lordosis. No destructive bony lesion. DISCS/SPINAL CANAL/NEURAL FORAMINA: Multilevel disc space narrowing with disc osteophyte complexes. PARASPINAL SOFT TISSUES: Unremarkable. OTHER FINDINGS: None. IMPRESSION: No acute fracture. Multilevel degenerative changes. Head CT: FINDINGS: HEMORRHAGE: No intracranial hemorrhage. BRAIN: No mass effect or edema. There is mild cerebral atrophy increased since prior exam. No significant appearing microvascular disease changes noted. VENTRICLES: Unremarkable. No hydrocephalus. CALVARIUM: There is areas of abnormal or differential calvarial thickening and calvarial density of each fronto temporal parietal calvarium compared to the more posterior septal calvarium. This has a somewhat demarcated edge to it overseas current axial series 3, image 39 this is somewhat perceived as well on the prior axial series 2, image 19 is accentuated on the current study. Reason for this is unclear. No fracture seen. This appears slightly more focal or may be the beginning edge of these marrow changes in the calvarium in the right frontal calvarium on current axial series 3, image 35. PARANASAL SINUSES: Unremarkable as visualized. No significant inflammatory changes. MASTOID AIR CELLS: Unremarkable as visualized. No inflammatory changes. OTHER FINDINGS: None. IMPRESSION: Intracranial hemorrhage or mass effect. Mild generalized cerebral atrophy-increased since 2007. Apparent calvarial thickening with abnormal calvarial diploic marrow density-. A underlying marrow pathology here needs to be considered. This is more accentuated compared to 2008. Correlation with CBC/anemia testing is advised. Clinical follow-up recommended. No fracture seen. 16:[address] Camilo who states that patient can follow up outpatient as last blood work in April of this year showed no anemia. CT upper extremity: FINDINGS: BONES: Diffuse elbow joint space narrowing most pronounced radiocapitellar joint. No acute fracture appreciated. No dislocation. Capitellar tiny subchondral cystic changes. Diffuse spurs around the entire right elbow joint are noted there is also diffuse femoral head maintains normal contour. Joint unremarkable. No dislocation. No degenerative changes. JOINT: Multiple ossific debris loose bodies in the left elbow joint SOFT TISSUES: Elbow joint effusion. IMPRESSION: No fracture appreciated. Osteoarthrosis. Elbow joint loose bodies. Elbow joint effusion. 1710 Patient reports she has not yet taken her BP medication today and denies any complaints related to her elevated BP reading in ED. On re-evaluation, patient reports improvement of symptoms. On exam, patient remains AAOx3, in no acute distress. Lungs clear to auscultation, cardiac RRR, repeat neuro exam shows no focal findings. Lab/Diagnostic results d/w the patient in great detail. Diagnosis of acute head, neck, elbow, and finger pain s/p fall; elevated blood pressure reading d/w the patient. Based on history, exam and diagnostic results, plan will be for outpatient follow up with PMD. Patient instructed to follow-up with pmd / referral provided / the clinic in 1- 2 days without fail. Advised to take medication as prescribed. Return to the emergency room at any time for any new or worsening symptoms. Patient states she fully agrees with and understands discharge instructions. States that she agrees with the plan and disposition. Verbalized and repeated discharge instructions and plan. I have given the patient opportunity to ask any additional questions. Scribe Attestation: Documented by Carole Andre, acting as a scribe for Anya Richmond PA-C. Provider Scribe Attestation: All medical record entries made by the Scribe were at my direction and personally dictated by me. I have reviewed the chart and agree that the record accurately reflects my personal performance of the history, physical exam, medical decision making, and the department course for this patient. I have also personally directed, reviewed, and agree with the discharge instructions and disposition. Disposition - Clinical Impression Clinical Impression: Elbow pain, Finger pain, Neck pain, Closed head injury, Elevated blood pressure reading - Patient ED Disposition Is Patient to be Admitted: No Counseled Patient/Family Regarding: Studies Performed, Diagnosis, Need For Followup, Rx Given - Disposition Referrals: Darshan Wilkes MD [Family Provider] - Disposition: Routine/Home Disposition Time: 17:15 Condition: STABLE Additional Instructions: The emergency medical care you received today was directed at your acute symptoms. If you were prescribed any medication, please fill it and take as directed. It may take several days for your symptoms to resolve. Return to the Emergency Department if your symptoms worsen, do not improve, or if you have any other problems. Please contact your doctor in 2 days for re-evaluation and follow up / or call one of the physicians/clinics you have been referred to that are listed on the Patient Visit Information form that is included in your discharge packet. Bring any paperwork you were given at discharge with you along with any medications you are taking to your follow up visit. Our treatment cannot replace ongoing medical care by a primary care provider (PCP) outside of the emergency department. Prescriptions: Acetaminophen [Acetaminophen 8 Hour] 650 mg PO Q8 PRN #21 tablet.er PRN Reason: Pain, Moderate (4-7) Meloxicam [Mobic] 15 mg PO DAILY #10 tab Instructions: High Blood Pressure in Adults, Closed Head Injury, Contusion (DC), Finger Sprain (DC), Elbow Sprain (DC), Generalized Neck Pain (DC), Hypertension (ED) Forms: [employer] (Montenegrin) Print Language: TURKMEN - POA Present On Arrival: Falls Or Trauma
[2018-09-20] MEDS ORDERED: Bacitracin 500 Units/gm Oint Foilpak UD ONE (15:09)
--- NOTE | 2018-09-20 15:40 | RAD ---
Date of service: 09/20/2018 PROCEDURE: Radiographs of the right elbow. HISTORY: s/p fall, joint pain COMPARISON: No prior. FINDINGS: BONES: No placed fracture. JOINTS: Degenerative changes. SOFT TISSUES: Normal. JOINT EFFUSION: Suggestion of anterior fat pad elevation OTHER FINDINGS: None. IMPRESSION: Suggestion of anterior fat pad elevation raise the possibility of radio occult fracture. Clinical correlation is recommended.
--- NOTE | 2018-09-20 15:41 | RAD ---
PROCEDURE: Left Hand Radiographs. HISTORY: s/p fall, 2nd digit injury COMPARISON: None. FINDINGS: BONES: No acute fracture. JOINTS: 1st carpometacarpal joint degenerative changes. SOFT TISSUES: Normal. OTHER FINDINGS: None. IMPRESSION: No demonstrated fracture or dislocation.
--- NOTE | 2018-09-20 16:10 | CT ---
Date of service: 09/20/2018 PROCEDURE: CT HEAD WITHOUT CONTRAST. HISTORY: s/p fall, right parietal scalp tenderness COMPARISON: 02/28/2008 CT head. That report is not available to me now TECHNIQUE: Axial computed tomography images were obtained through the head/brain without intravenous contrast. Radiation dose: Total exam DLP = 851.45 mGy-cm. This CT exam was performed using one or more of the following dose reduction techniques: Automated exposure control, adjustment of the mA and/or kV according to patient size, and/or use of iterative reconstruction technique. FINDINGS: HEMORRHAGE: No intracranial hemorrhage. BRAIN: No mass effect or edema. There is mild cerebral atrophy increased since prior exam. No significant appearing microvascular disease changes noted. VENTRICLES: Unremarkable. No hydrocephalus. CALVARIUM: There is areas of abnormal or differential calvarial thickening and calvarial density of each fronto temporal parietal calvarium compared to the more posterior septal calvarium. This has a somewhat demarcated edge to it overseas current axial series 3, image 39 this is somewhat perceived as well on the prior axial series 2, image 19 is accentuated on the current study. Reason for this is unclear. No fracture seen. This appears slightly more focal or may be the beginning edge of these marrow changes in the calvarium in the right frontal calvarium on current axial series 3, image 35. PARANASAL SINUSES: Unremarkable as visualized. No significant inflammatory changes. MASTOID AIR CELLS: Unremarkable as visualized. No inflammatory changes. OTHER FINDINGS: None. IMPRESSION: Intracranial hemorrhage or mass effect. Mild generalized cerebral atrophy-increased since 2008. Apparent calvarial thickening with abnormal calvarial diploic marrow density-. A underlying marrow pathology here needs to be considered. This is more accentuated compared to 2008. Correlation with CBC/anemia testing is advised. Clinical follow-up recommended. No fracture seen.
--- NOTE | 2018-09-20 16:15 | CT ---
Date of service: 09/20/2018 PROCEDURE: CT Cervical Spine without contrast HISTORY: s/p fall COMPARISON: None available. TECHNIQUE: Axial computed tomography images were obtained of the cervical spine without the use of intravenous contrast. Coronal and sagittal reformatted images were created and reviewed. Radiation dose: Total exam DLP = 382.63 mGy-cm. This CT exam was performed using one or more of the following dose reduction techniques: Automated exposure control, adjustment of the mA and/or kV according to patient size, and/or use of iterative reconstruction technique. FINDINGS: VERTEBRAE: No fracture. Reversal of the normal lordosis. No destructive bony lesion. DISCS/SPINAL CANAL/NEURAL FORAMINA: Multilevel disc space narrowing with disc osteophyte complexes. PARASPINAL SOFT TISSUES: Unremarkable. OTHER FINDINGS: None. IMPRESSION: No acute fracture. Multilevel degenerative changes.
--- NOTE | 2018-09-20 16:54 | CT ---
Date of service: 09/20/2018 PROCEDURE: CT of the right elbow HISTORY: R/O ELBOW FRACTURE S/P FALL COMPARISON: Right elbow x-ray 09/20/2018 TECHNIQUE: Contiguous axial images of the right hip were obtained. Coronal and sagittal reformats were generated. Radiation dose: Total exam DLP = 150.87 mGy-cm. This CT exam was performed using one or more of the following dose reduction techniques: Automated exposure control, adjustment of the mA and/or kV according to patient size, and/or use of iterative reconstruction technique. FINDINGS: BONES: Diffuse elbow joint space narrowing most pronounced radiocapitellar joint. No acute fracture appreciated. No dislocation. Capitellar tiny subchondral cystic changes. Diffuse spurs around the entire right elbow joint are noted there is also diffuse femoral head maintains normal contour. Joint unremarkable. No dislocation. No degenerative changes. JOINT: Multiple ossific debris loose bodies in the left elbow joint SOFT TISSUES: Elbow joint effusion. IMPRESSION: No fracture appreciated. Osteoarthrosis. Elbow joint loose bodies. Elbow joint effusion.
[2018-09-20 17:36] VITALS: BP 137/73; PULSE 61; RESP 20
== END 2018-09-20 17:37 | disposition home or self-care (01) ==
LOC: H.ER 14:24
DX: S09.90XA Unspecified injury of head, initial encounter (principal); M54.2 Cervicalgia; M25.522 Pain in left elbow; M79.645 Pain in left finger(s); W19.XXXA Unspecified fall, initial encounter; Y93.01 Activity, walking, marching and hiking; E78.00 Pure hypercholesterolemia, unspecified; I10 Essential (primary) hypertension; Z79.899 Other long term (current) drug therapy; Z96.653 Presence of artificial knee joint, bilateral

== ENCOUNTER 2018-10-17 09:00 | Emergency (ER) | payer OTHER ==
[2018-10-17 09:01] VITALS: BMI 49.4
[2018-10-17 09:47] VITALS: RESP 18
[2018-10-17] MEDS ORDERED: Oxycodone/Acetaminophen 5/325 mg Tab ONE (11:18)
[2018-10-17] MEDS: Oxycodone/Acetaminophen 5/325 mg Tab PO STA (11:21)
--- NOTE | 2018-10-17 11:23 | ED PDOC ---
HPI: General Adult Time Seen by Provider: 10/17/18 10:24 Chief Complaint (Nursing): Back Pain History Per: Patient Additional Complaint(s): Pt. states yesterday she developed atraumatic neck pain radiating down both arms (R>L) with swelling developing on the R index finger. Pain is worsened with movement of the neck. Further states also developing atraumatic pain in the L 2nd toe. States she had a hammertoe surgery done [address] Gomez. Denies chest pain, fever, headache, SOB, rash, trauma. Past Medical History Reviewed: Historical Data, Nursing Documentation, Vital Signs Vital Signs: Last Vital Signs Temp 99.2 F 10/17/18 09:25 Pulse 92 H 10/17/18 09:25 Resp 18 10/17/18 09:25 BP 121/54 L 10/17/18 09:25 Pulse Ox 95 10/17/18 09:25 - Medical History PMH: Arthritis, Asthma (LAST ATTACK 2 YRS AGO), HTN, Hypercholesterolemia, Rheumatoid Arthritis Denies: Alzheimer's Disease, Anemia, Bronchitis, COPD, Dementia, Emphysema, Fibromyalgia, Migraine, Multiple Sclerosis, Parkinson's Disease, Pneumonia, Pulmonary Embolism, Chronic Kidney Disease, Seizures, Sleep Apnea, TIA - Surgical History Surgical History: Cholecystectomy (05/10/17), Endoscopy - Family History Family History: States: No Known Family Hx - Home Medications Home Medications: Ambulatory Orders Medication Instructions Recorded Aspirin [Lo-Dose Aspirin EC] 81 mg PO DAILY 09/04/18 Enalapril/Hydrochlorothiazide 10 - 25 mg PO DAILY 09/04/18 [Enalapril-Hctz 10-25 mg Tablet] Simvastatin 10 mg PO DAILY 09/04/18 Acetaminophen [Acetaminophen 8 650 mg PO Q8 PRN #21 tablet.er 09/20/18 Hour] Meloxicam [Mobic] 15 mg PO DAILY #10 tab 09/20/18 DiphenhydrAMINE [Benadryl] 50 mg PO Q6 PRN #12 cap 10/17/18 Ibuprofen [Motrin Tab] 800 mg PO Q6 PRN #10 tab 10/17/18 Methocarbamol [Robaxin] 500 mg PO TID PRN #15 tab 10/17/18 - Allergies Allergies/Adverse Reactions: Allergies Allergy/AdvReac Type Severity Reaction Status Date / Time No Known Allergies Allergy Verified 09/20/18 14:31 Review of Systems ROS Statement: Except As Marked, All Systems Reviewed And Found Negative Musculoskeletal: Positive for: Neck Pain Physical Exam - Physical Exam Appears: Positive for: Well, Non-toxic, In Acute Distress (mild painful distress) Skin: Positive for: Normal Color, Warm. Negative for: Rash Eye Exam: Positive for: Normal appearance Neck: Positive for: Normal, Supple, Pain On Movement Of Neck Cardiovascular/Chest: Positive for: Regular Rate, Rhythm, Chest Non Tender Respiratory: Positive for: Normal Breath Sounds Pulses-Dorsalis Pedis (L): 2+ Pulses-Dorsalis Pedis (R): 2+ Pulses-Radial (L): 2+ Pulses-Radial (R): 2+ Gastrointestinal/Abdominal: Positive for: Soft. Negative for: Tenderness Back: Positive for: Normal Inspection, Muscle Spasm (b/l paracervical muscle spasm). Negative for: L CVA Tenderness, R CVA Tenderness Extremity: Positive for: Capillary Refill (< 2 seconds of L 2nd toe), Other (L 2 nd toe with old surgical scar on plantar surface without swelling, warmth, erythema, break in skin integrity; b/l upper extremity strength is 5/5; b/l lower extremity strength is 5/5). Negative for: Calf Tenderness (b/l) Neurologic/Psych: Positive for: Alert, Oriented (x3). Negative for: Aphasia, Facial Droop - ECG O2 Sat by Pulse Oximetry: 95 - Radiology X-Ray: Interpreted by Me (C-spine, L 2nd toe x-ray) - Progress ED Course And Treament: Toradol 30mg IM, valium 10mg PO, percocet 1 tab PO ordered. 1230 On re-evaluation, pt. reports neck pain and toe pain have improved. Pt. states when she returned from x-ray she noticed a rash on both her lower extremities that was not present before coming to ED. B/L lower extremities with scattered erythematous papules without break in skin integrity, warmth, vesicles, or surrounding erythema. Denies pruritus, throat swelling, SOB, chest pain. Rash is localized to the b/l lower extremities. Benadryl 50mg PO ordered. Re-evaluation Time: 14:04 Condition: Re-examined, Improved Disposition - Clinical Impression Clinical Impression: Cervical radiculopathy, Toe pain, Rash - Patient ED Disposition Is Patient to be Admitted: No - Disposition Referrals: [facility] [place] [Outside] Disposition: Routine/Home Disposition Time: 14:05 Condition: IMPROVED Additional Instructions: FOLLOW UP WITH PMD FOR FURTHER EVALUATION RETURN TO ED IMMEDIATELY IF SYMPTOMS WORSEN REZA FARMER, thank you for letting us take care of you today. Your provider was Catracho Gerard MD and you were treated for B/L FOOT PAIN. The emergency medical care you received today was directed at your acute symptoms. If you were prescribed any medication, please fill it and take as directed. It may take several days for your symptoms to resolve. Return to the Emergency Department if your symptoms worsen, do not improve, or if you have any other problems. Please contact your doctor or call one of the physicians/clinics you have been referred to that are listed on the Patient Visit Information form that is included in your discharge packet. Bring any paperwork you were given at discharge with you along with any medications you are taking to your follow up visit. Our treatment cannot replace ongoing medical care by a primary care provider outside of the emergency department. Thank you for allowing the [facility] team to be part of your care today. If you had an X-Ray or CT scan: A Radiologist will review the ED reading if any change in treatment is needed we will contact you. If you had a blood, urine, or wound culture: It will take several days for the results, if any change in treatment is needed we will contact you. If you had an STI test: It will take 48 hours for the results. Please call after 1 week if you have not heard back. Prescriptions: DiphenhydrAMINE [Benadryl] 50 mg PO Q6 PRN #12 cap PRN Reason: Rash Ibuprofen [Motrin Tab] 800 mg PO Q6 PRN #10 tab PRN Reason: pain Methocarbamol [Robaxin] 500 mg PO TID PRN #15 tab PRN Reason: Muscle Spasm Instructions: Skin Rash (DC), Radiculopathy (DC) Forms: [employer] (Arabic) Print Language: MACEDONIAN
--- NOTE | 2018-10-17 12:38 | RAD ---
Date of service: 10/17/2018 PROCEDURE: Left foot HISTORY: Pain. No history of recent/ related trauma provided COMPARISON: None TECHNIQUE: Standard protocol for this study/examination. FINDINGS: Postoperative findings related to triple arthrodesis. Postoperative findings related to hallux valgus repair. Postoperative findings 2nd metatarsal distal aspect No evidence of orthopedic hardware failure. Multiple hammertoe deformities IMPRESSION: No acute findings related to/ accounting for the clinical presentation.
--- NOTE | 2018-10-17 12:40 | RAD ---
Date of service: 10/17/2018 PROCEDURE: Cervical Spine Radiographs. HISTORY: Pain. No history of recent/ related trauma provided COMPARISON: 08/20/2010 FINDINGS: BONES: Reversal of the anatomic lordosis with kyphosis. Degree: Mild DISC SPACES: Multilevel degenerative changes C4-5, C5-6, C6-7. Slightly progressive compared to the prior study. SOFT TISSUES: Normal. No prevertebral soft tissue swelling. OTHER FINDINGS: None. IMPRESSION: No acute findings related to/ accounting for the clinical presentation.
[2018-10-17 13:43] VITALS: BP 131/77; PULSE 78; TEMP 98.8
[2018-10-17 14:07] VITALS: O2SAT 95
== END 2018-10-17 14:25 | disposition home or self-care (01) ==
LOC: H.ER 09:00
DX: M54.12 Radiculopathy, cervical region (principal); R21 Rash and other nonspecific skin eruption; M79.675 Pain in left toe(s); E78.00 Pure hypercholesterolemia, unspecified; I10 Essential (primary) hypertension; Z79.899 Other long term (current) drug therapy
CPT/HCPCS: 72040; 73660; 96372; 99283; J1885

== ENCOUNTER 2018-12-04 17:24 | Emergency (ER) | payer OTHER ==
[2018-12-04 17:24] VITALS: BMI 49.4
[2018-12-04 17:38] VITALS: RESP 18
--- NOTE | 2018-12-04 17:49 | ED PDOC ---
HPI: Back Time Seen by Provider: 12/04/18 17:39 Chief Complaint (Nursing): Back Pain Chief Complaint (Provider): Back Pain History Per: Patient History/Exam Limitations: no limitations Onset/Duration Of Symptoms: Persistent, Worse Since (this morning) Current Symptoms Are (Timing): Still Present Additional Complaint(s): 63 year old female with pmHx of HTN, HCL, and chronic back pain, presents to ED with a complaint of worsening left-sided, lower back pain since waking up this morning. She denies radiation of pain, new injury, numbness, weakness, change in bowel movements or urination. Patient states she ran out of Rx for Flexeril, in which, she typically takes for chronic back pain secondary to disc herniation. She reports taking Naprosyn prior to arrival with minimal relief. Of note, she has a pending appointment with the clinic on 12/18/18 but states that she usually comes to ED for muscle injections during flare-ups. PCP: Dr. Adriana Perez Past Medical History Reviewed: Historical Data, Nursing Documentation, Vital Signs Vital Signs: Last Vital Signs Temp 98.2 F 12/04/18 17:36 Pulse 78 12/04/18 17:36 Resp 18 12/04/18 17:36 BP 142/84 12/04/18 17:36 Pulse Ox 98 12/04/18 17:36 - Medical History PMH: Arthritis, Asthma (LAST ATTACK 2 YRS AGO), HTN, Hypercholesterolemia, Rheumatoid Arthritis Denies: Alzheimer's Disease, Anemia, Bronchitis, COPD, Dementia, Emphysema, Fibromyalgia, Migraine, Multiple Sclerosis, Parkinson's Disease, Pneumonia, Pulmonary Embolism, Chronic Kidney Disease, Seizures, Sleep Apnea, TIA - Surgical History Surgical History: Cholecystectomy (05/10/17), Endoscopy - Family History Family History: States: Unknown Family Hx - Home Medications Home Medications: Ambulatory Orders Medication Instructions Recorded Aspirin [Lo-Dose Aspirin EC] 81 mg PO DAILY 09/04/18 Enalapril/Hydrochlorothiazide 10 - 25 mg PO DAILY 09/04/18 [Enalapril-Hctz 10-25 mg Tablet] Simvastatin 10 mg PO DAILY 09/04/18 Acetaminophen [Acetaminophen 8 650 mg PO Q8 PRN #21 tablet.er 09/20/18 Hour] Meloxicam [Mobic] 15 mg PO DAILY #10 tab 09/20/18 DiphenhydrAMINE [Benadryl] 50 mg PO Q6 PRN #12 cap 10/17/18 Ibuprofen [Motrin Tab] 800 mg PO Q6 PRN #10 tab 10/17/18 Methocarbamol [Robaxin] 500 mg PO TID PRN #15 tab 10/17/18 Cyclobenzaprine [Cyclobenzaprine 10 mg PO BID PRN #14 tab 12/04/18 HCl] traMADol [Ultram] 50 mg PO Q8 PRN #10 tab 12/04/18 - Allergies Allergies/Adverse Reactions: Allergies Allergy/AdvReac Type Severity Reaction Status Date / Time No Known Allergies Allergy Verified 09/20/18 14:31 Review of Systems ROS Statement: Except As Marked, All Systems Reviewed And Found Negative Gastrointestinal: Negative for: Diarrhea, Constipation Genitourinary Female: Negative for: Dysuria, Hematuria Musculoskeletal: Positive for: Back Pain (lower left) Neurological: Negative for: Weakness, Numbness Physical Exam - Reviewed Nursing Documentation Reviewed: Yes Vital Signs Reviewed: Yes - Physical Exam Appears: Positive for: Uncomfortable Head Exam: Positive for: ATRAUMATIC, NORMAL INSPECTION, NORMOCEPHALIC Skin: Positive for: Normal Color Eye Exam: Positive for: Normal appearance ENT: Positive for: Normal ENT Inspection Neck: Positive for: Normal, Painless ROM, Supple Cardiovascular/Chest: Positive for: Regular Rate, Rhythm Respiratory: Negative for: Respiratory Distress Back: Positive for: Vertebral Tenderness (diffusely to lumbar and left paralumbar). Negative for: Other (bony deformity or skin changes) Extremity: Positive for: Normal ROM (upper/lower) Neurologic/Psych: Positive for: Alert (x3), Oriented. Negative for: Motor/Sensory Deficits - ECG O2 Sat by Pulse Oximetry: 98 (RA) Pulse Ox Interpretation: Normal Medical Decision Making Medical Decision Making: Time: 1740 Initial Plan: * Flexeril 10mg PO * Toradol 30mg IM Time: 1843 --Patient report persistent pain. Ultram 50mg PO additionally ordered Time: 1938 --Upon provider re-evaluation, patient is medically stable, reports improvement in symptoms, and requires no further treatment in the ED at this time. Patient will be discharged home with Rx for Flexeril and Tramadol. Strict instructions given to use narcotics PRN for severe pain and to follow up with clinic on 12/18/18. Discussed risks of narcotic dependence, abuse, and overdose. There is agreement to discharge plan. Return if symptoms persist or worsen. Clinical Impression: Low back pain Scribe Attestation: Documented by Amie Barney, acting as a scribe for Jenifer Martinez PA-C. Provider Scribe Attestation: All medical record entries made by the Scribe were at my direction and person ally dictated by me. I have reviewed the chart and agree that the record accurately reflects my personal performance of the history, physical exam, medical decision making, and the department course for this patient. I have also personally directed, reviewed, and agree with the discharge instructions and disposition. Disposition - Clinical Impression Clinical Impression: Low back pain - Patient ED Disposition Is Patient to be Admitted: No Counseled Patient/Family Regarding: Studies Performed, Diagnosis, Need For Followup, Rx Given - Disposition Disposition: Routine/Home Disposition Time: 19:39 Condition: IMPROVED Prescriptions: Cyclobenzaprine [Cyclobenzaprine HCl] 10 mg PO BID PRN #14 tab PRN Reason: Muscle Spasm traMADol [Ultram] 50 mg PO Q8 PRN #10 tab PRN Reason: Pain, Moderate (4-7) Instructions: Low Back Pain in Adults Forms: [employer] (Hebrew)
[2018-12-04 19:51] VITALS: BP 138/78; PULSE 76; TEMP 98
[2018-12-04 19:53] VITALS: O2SAT 98
== END 2018-12-04 19:50 | disposition home or self-care (01) ==
LOC: H.ER 17:24
DX: M54.5 Low back pain (principal); G89.29 Other chronic pain; I10 Essential (primary) hypertension; J45.909 Unspecified asthma, uncomplicated; M06.9 Rheumatoid arthritis, unspecified; Z79.899 Other long term (current) drug therapy
CPT/HCPCS: 96372; 99283; J1885

== ENCOUNTER 2019-02-16 12:11 | Emergency (ER) | payer OTHER ==
[2019-02-16 12:11] VITALS: BMI 49.4
[2019-02-16 12:39] VITALS: BP 129/74; PULSE 57; RESP 18; TEMP 97; O2SAT 98
[2019-02-16] MEDS ORDERED: Methocarbamol 750 MG TAB PO STA (12:56)
--- NOTE | 2019-02-16 14:39 | ED PDOC ---
HPI: Back Time Seen by Provider: 02/16/19 14:02 Chief Complaint (Nursing): Back Pain Chief Complaint (Provider): Back Pain History Per: Patient History/Exam Limitations: no limitations Onset/Duration Of Symptoms: Days (x3) Current Symptoms Are (Timing): Still Present Additional Complaint(s): 63 y/o female with a PMHx of HTN, Hypercholesterolemia and Chronic Back Pain p resents to the ED for evaluation of back pain, onset three days ago. Patient notes of having occasional exacerbation of her chronic back pain and further notes at last visit here she was given Flexeril that usually helps with the pain but has not been helping since onset this time. Patient reports pain has been keeping her up at night, making it hard for her to fall asleep and is non- radiating. Patient is unsure what may have caused this pain. Patient notes of last taking Flexeril for pain with no relief at 8 AM. Of note, patient walks with a cane at baseline. Otherwise, patient denies any abnormal activity, Tylenol or Ibuprofen use, fever, chills, numbness, tingling, urinary or bowel incontinence, saddle anesthesia, hematuria and history of IV drug use. PMD: Darshan Wilkes Past Medical History Reviewed: Historical Data, Nursing Documentation, Vital Signs Vital Signs: Last Vital Signs Temp 97 F L 02/16/19 12:37 Pulse 57 L 02/16/19 12:37 Resp 18 02/16/19 12:37 BP 129/74 02/16/19 12:37 Pulse Ox 98 02/16/19 12:37 - Medical History PMH: Arthritis, Asthma (LAST ATTACK 2 YRS AGO), HTN, Hypercholesterolemia, Rheumatoid Arthritis, Chronic Pain (chronic back pain) Denies: Alzheimer's Disease, Anemia, Bronchitis, COPD, Dementia, Emphysema, Fibromyalgia, Migraine, Multiple Sclerosis, Parkinson's Disease, Pneumonia, Pulmonary Embolism, Chronic Kidney Disease, Seizures, Sleep Apnea, TIA - Surgical History Surgical History: Cholecystectomy (05/10/17), Endoscopy Other surgeries: left shoulder surgery (three weeks ago), bilateral knee replacement, ankle and foot surgery. - Family History Family History: States: Unknown Family Hx - Social History Current smoker - smoking cessation education provided: No Ex-Smoker (has not smoked in the last 12 months): Yes (1 year ago) Alcohol: None Drugs: Denies - Home Medications Home Medications: Ambulatory Orders Medication Instructions Recorded Aspirin [Lo-Dose Aspirin EC] 81 mg PO DAILY 09/04/18 Enalapril/Hydrochlorothiazide 10 - 25 mg PO DAILY 09/04/18 [Enalapril-Hctz 10-25 mg Tablet] Simvastatin 10 mg PO DAILY 09/04/18 Acetaminophen [Acetaminophen 8 650 mg PO Q8 PRN #21 tablet.er 09/20/18 Hour] Meloxicam [Mobic] 15 mg PO DAILY #10 tab 09/20/18 DiphenhydrAMINE [Benadryl] 50 mg PO Q6 PRN #12 cap 10/17/18 Ibuprofen [Motrin Tab] 800 mg PO Q6 PRN #10 tab 10/17/18 Methocarbamol [Robaxin] 500 mg PO TID PRN #15 tab 10/17/18 Cyclobenzaprine [Cyclobenzaprine 10 mg PO BID PRN #14 tab 12/04/18 HCl] traMADol [Ultram] 50 mg PO Q8 PRN #10 tab 12/04/18 Methocarbamol [Robaxin] 750 mg PO TID PRN #12 tab 02/16/19 Naproxen 500 mg PO BID #20 tab 02/16/19 - Allergies Allergies/Adverse Reactions: Allergies Allergy/AdvReac Type Severity Reaction Status Date / Time No Known Allergies Allergy Verified 09/20/18 14:31 Review of Systems ROS Statement: Except As Marked, All Systems Reviewed And Found Negative Constitutional: Negative for: Fever, Chills Genitourinary Female: Negative for: Incontinence, Hematuria Musculoskeletal: Positive for: Back Pain Neurological: Negative for: Numbness (or tingling) Physical Exam - Reviewed Nursing Documentation Reviewed: Yes Vital Signs Reviewed: Yes - Physical Exam Comments: GENERAL APPEARANCE: Patient is awake, alert, oriented x 3, in no acute distress. Patient appears morbidly obese and in no obvious discomfort. SKIN: Warm, dry; (-) cyanosis. EYES: (-) conjunctival pallor. ENMT: Mucous membranes moist. NECK: (-) tenderness, (-) stiffness, (-) lymphadenopathy. CHEST AND RESPIRATORY: (-) rales, (-) rhonchi, (-) wheezes; breath sounds equal bilaterally. HEART AND CARDIOVASCULAR: (-) irregularity; (-) murmur, (-) gallop. ABDOMEN AND GI: Soft; (-) tenderness; (-) palpable mass. BACK: (-) midline tenderness, (+) moderate left lumbar tenderness, (+) moderate palpable spasm, (-) direct bony tenderness, (-) deformity. (-) Straight leg raise bilaterally. Decreased ROM secondary to pain. EXTREMITIES: (-) deformity. Distal pulses good bilaterally. NEURO AND PSYCH: Mental status as above. ict developer II-XII: intact; Strength: 5/5 in all extremities (upper/lower); Intact sensation bilaterally; normal strength in extension of the knees, plantar and dorsiflexion of the toes. DTRs symmetric. - ECG O2 Sat by Pulse Oximetry: 98 (RA) Pulse Ox Interpretation: Normal Medical Decision Making Medical Decision Making: Time: 1304 Impression: Chronic Back Pain Plan: -- Decadron Inj 10 mg IM -- Toradol 30 mg IM -- Valium 5 mg PO (pt is not driving home) Time: 1424 -- On re-evaluation, patient is resting comfortably, reporting of an improvement in symptoms. Patient was able to sleep while here in the ED as she hasn't been able to sleep while at home. Patient is stable for discharge home at this time. Pt is neurologically intact, ambulating with steady gait with cane assistance Discussed diagnosis, treatment, return precautions and f/u with pt who is understanding, in agreement and stable for dc Scribe Attestation: Documented by Isaac Garcia, acting as a scribe Tom Weston PA-C. Provider Scribe Attestation: All medical record entries made by the Scribe were at my direction and personally dictated by me. I have reviewed the chart and agree that the record accurately reflects my personal performance of the history, physical exam, medical decision making, and the department course for this patient. I have also personally directed, reviewed, and agree with the discharge instructions and disposition. Disposition - Clinical Impression Clinical Impression: Low back pain, Muscle spasm of back - Patient ED Disposition Is Patient to be Admitted: No Counseled Patient/Family Regarding: Studies Performed, Diagnosis, Need For Followup - Disposition Referrals: [facility] [place] [Outside] [facility] [place] [Outside] Disposition: Routine/Home Disposition Time: 14:24 Condition: STABLE Additional Instructions: Return to ED for new or worsening symptoms, fever >100.4, numbness or tingling, urinary or bowel incontinecne, unable to walk. Follow up with your primary doctor or ortho clinic in 2-3 days. Take medications as prescribed. Do not drive or drink alcohol when taking robaxin. Stop taking flexeril. Use heating pads and hot showers to soothe muscles. Rest, avoid heavy lifting or strenuous activity for one week. Prescriptions: Methocarbamol [Robaxin] 750 mg PO TID PRN #12 tab PRN Reason: Muscle Spasm Naproxen 500 mg PO BID #20 tab Instructions: Low Back Pain in Adults, Chronic Pain (DC), Muscle Spasms (DC) Forms: [employer] (Faroese) Print Language: BENGALI - POA Present On Arrival: None
== END 2019-02-16 14:49 | disposition home or self-care (01) ==
LOC: H.ER 12:11
DX: M54.5 Low back pain (principal); M62.830 Muscle spasm of back; Z96.653 Presence of artificial knee joint, bilateral
CPT/HCPCS: 96372; 99283; J1100; J1885

== ENCOUNTER 2019-03-10 10:53 | Emergency (ER) | payer OTHER ==
[2019-03-10 10:54] VITALS: BMI 49.4
[2019-03-10 11:09] VITALS: BP 138/71; PULSE 75; RESP 16; TEMP 98.3; O2SAT 95
--- NOTE | 2019-03-10 11:54 | ED PDOC ---
Arrival/HPI - History of Present Illness Narrative History of Present Illness (Text): 03/10/19 11:49 63 y/o F with hx of HTN & HLD is c/o left lip swelling since this AM. She denied any similar symptoms in the past, hx of allergies/cold sores, f/c/n/v/abd pain,d/cp or sob . PMH: HTN, HLD & back pain Meds: aspiring, simvastatin, enalapril, naprosyn & flexeril as needed Allergies: denies Surghx: cholecystectomy Famhx: noncontributory Sochx: social drinker & smoker, no elicit drug use ROS: all points reviewed and are negative unless otherwise mentioned in HPI <María Elena Delgado - Last Filed: 03/10/19 12:23> <Marge Mcnamara - Last Filed: 03/10/19 12:38> - General Chief Complaint: Abnormal Skin Integrity Time Seen by Provider: 03/10/19 11:19 Past Medical History - Infectious Disease Hx of Infectious Diseases: None - Cardiac Hx Hypertension: Yes - Pulmonary Hx Asthma: Yes (LAST ATTACK 2 YRS AGO) Hx Bronchitis: No Hx Chronic Obstructive Pulmonary Disease (COPD): No Hx Emphysema: No Hx Pneumonia: No Hx Pulmonary Embolism: No Hx Sleep Apnea: No - Neurological Hx Alzheimer's Disease: No Hx Dementia: No Hx Migraine: No Hx Multiple Sclerosis: No Hx Parkinson's Disease: No Hx Seizures: No Hx Transient Ischemic Attacks (TIA): No - HEENT Hx HEENT Disorder: No - Renal Hx Renal Disorder: No - Endocrine/Metabolic Hx Endocrine Disorders: No - Hematological/Oncological Hx Anemia: No - Integumentary Hx Dermatological Disorder: No - Musculoskeletal/Rheumatological Hx Arthritis: Yes Hx Rheumatoid Arthritis: Yes - Gastrointestinal Hx Gastrointestinal Disorders: No - Genitourinary/Gynecological Hx Genitourinary Disorders: No - Psychiatric Hx Psychophysiologic Disorder: No Hx Emotional Abuse: No Hx Physical Abuse: No Hx Substance Use: No - Surgical History Hx Cholecystectomy: Yes (05/10/17) - Anesthesia Hx Anesthesia: Yes Hx Anesthesia Reactions: No Hx Malignant Hyperthermia: No - Suicidal Assessment Feels Threatened In Home Enviroment: No <María Elena Dlegado - Last Filed: 03/10/19 12:23> Family/Social History Family/Social History: Unknown Family HX Smoking Status: Former Smoker Hx Alcohol Use: No Hx Substance Use: No <Danny,Soraya - Last Filed: 03/10/19 12:23> Allergies/Home Meds <Danny,María Elena - Last Filed: 03/10/19 12:23> <McnamaraSa chemargarita Muñoz - Last Filed: 03/10/19 12:38> Allergies/Adverse Reactions: Allergies No Known Allergies Allergy (Verified 09/20/18 14:31) Home Medications: Home Meds Medication Instructions Recorded Confirmed Aspirin [Lo-Dose Aspirin EC] 81 mg PO DAILY 09/04/18 09/04/18 Enalapril/Hydrochlorothiazide 10 - 25 mg PO DAILY 09/04/18 09/04/18 [Enalapril-Hctz 10-25 mg Tablet] Simvastatin 10 mg PO DAILY 09/04/18 09/04/18 Physical Exam Vital Signs Temp Pulse Resp BP Pulse Ox 03/10/19 11:06 98.3 F 75 16 138/71 95 Temperature: Afebrile Blood Pressure: Normal Pulse: Regular Respiratory Rate: Normal Appearance: Positive for: Non-Toxic, Comfortable. No: Ill-Appearing Mental Status: Positive for: Alert and Oriented X 3 - Systems Exam Head: Present: Atraumatic, Normocephalic Pupils: Present: PERRL Conjunctiva: Present: Normal Ears: Present: NORMAL TM. No: Erythema Mouth: Present: Moist Mucous Membranes Pharnyx: Present: Normal. No: ERYTHEMA, EXUDATE, Peritonsilar Swelling Cardiovascular: Present: Regular Rate and Rhythm. No: Murmurs Abdomen: Present: Normal Bowel Sounds. No: Tenderness, Distention, Rebound, Guarding Upper Extremity: Present: Normal Inspection Lower Extremity: Present: Normal Inspection Skin: Present: Warm, Dry, Normal Color. No: Rashes Psychiatric: Present: Alert, Oriented x 3 <DannyMaría Elena - Last Filed: 03/10/19 12:23> Vital Signs Temp Pulse Resp BP Pulse Ox 03/10/19 11:06 98.3 F 75 16 138/71 95 <McnamaraMarge Muñoz - Last Filed: 03/10/19 12:38> Medical Decision Making - Medication Orders Current Medication Orders: Discontinued Medications Diphenhydramine HCl (Benadryl) 25 mg PO ONCE ONE Stop: 03/10/19 11:46 <María Elena Delgado - Last Filed: 03/10/19 12:23> - Medication Orders Current Medication Orders: Discontinued Medications Diphenhydramine HCl (Benadryl) 25 mg PO ONCE ONE Stop: 03/10/19 11:46 Last Admin: 03/10/19 11:54 Dose: 25 mg <Marge Mcnamara - Last Filed: 03/10/19 12:38> Disposition/Present on Arrival - Present on Arrival Any Indicators Present on Arrival: No History of DVT/PE: No History of Uncontrolled Diabetes: No Urinary Catheter: No - Disposition Have Diagnosis and Disposition been Completed?: Yes Disposition Time: 12:20 <María Elena Delgado - Last Filed: 03/10/19 12:23> - Present on Arrival Any Indicators Present on Arrival: No History of DVT/PE: No History of Uncontrolled Diabetes: No Urinary Catheter: No - Disposition Have Diagnosis and Disposition been Completed?: Yes <Marge Mcnamara - Last Filed: 03/10/19 12:38> - Disposition Diagnosis: Cold sore Disposition: HOME/ ROUTINE Patient Problems: Current Active Problems Problem Status Onset Cold sore Acute Condition: FAIR Discharge Instructions (ExitCare): Cold Sores (Oral Herpes) Prescriptions: Valacyclovir HCl [Valacyclovir] 1,000 mg PO BID 7 Days #14 tablet Referrals: Darshan Wilkes MD [Family Provider] - Forms: [email or web address] (Iranian) ED Physician Attestation - Attestation I have personally seen and examined this patient.: Yes I have fully participated in the care of the patient.: Yes I have reviewed all pertinent clinical information, including history, physical exam and plan: Yes <Marge Mcnamara - Last Filed: 03/10/19 12:38>
== END 2019-03-10 13:15 | disposition home or self-care (01) ==
LOC: H.ER 10:53
DX: B00.1 Herpesviral vesicular dermatitis (principal)